=== PATIENT | female | born 1950 | race Caucasian/White ===

== ENCOUNTER → 2016-03-26 | Outpatient (CLI) | payer MEDICARE, OTHER | END | disposition home or self-care (01) | LOC: Rad HDHVI 11:30 | PROVIDERS: ATTEND Internal Medicine Cardiovascular Disease | DX: M43.16 Spondylolisthesis, lumbar region (principal); M48.06 Spinal stenosis, lumbar region; M41.86 Other forms of scoliosis, lumbar region | CPT/HCPCS: 72131 ==

== ENCOUNTER → 2016-08-16 | Outpatient (CLI) | payer MEDICARE, OTHER ==
[2016-08-16 12:45] VITALS: BP 148/82
[2016-08-16 13:20] VITALS: BP 153/77
[2016-08-16 17:11] LABS: Basophils # (auto) 0 uL; Basophils % (auto) 0.3 % (0.0-2.0); Eosinophils # (auto) 0.1 uL; Eosinophils % (auto) 1.4 % (0.0-7.0); Hematocrit 43.3 % (36.0-46.0); Hemoglobin 14.4 g/dL (12.2-16.2); Lymphocytes % (auto) 30.5 % (10.0-50.0); Mean Corpuscular Hemoglobin 30.9 pg (28.0-32.0); Mean Corpuscular Hgb Conc. 33.2 g/dL (32.0-36.0); Mean Corpuscular Volume 92.9 fL (80.0-100.0); Mean Platelet Volume 10.6 fL (7.4-10.4); Monocytes # (auto) 0.7 uL; Monocytes % (auto) 7.7 % (0.0-12.0); Neutrophils # (auto) 5.8 uL; Neutrophils % (auto) 60.1 % (37.0-80.0); Platelet Count (auto) 293 10^3/uL (140-450); Red Cell Distribution Width 14.3 % (11.6-16.0); White Blood Cell 9.7 10^3/uL (4.4-10.8)
[2016-08-16 17:27] LABS: INR 0.95 (0.9-1.15); Partial Thromboplastin Time 27.9 sec (22.64-33.71); Prothrombin Time 10.4 sec (9.37-12.3)
[2016-08-16 17:33] LABS: BUN/Creatinine Ratio 40.8; Calcium 9.1 mg/dL (8.5-10.1)
[2016-08-16 17:45] LABS: Potassium 3.9 mmol/L (3.5-5.1)
== END | disposition home or self-care (01) ==
LOC: Rad HDHVI 12:32
PROVIDERS: ATTEND Internal Medicine Cardiovascular Disease
DX: I10 Essential (primary) hypertension (principal); D64.9 Anemia, unspecified; R79.1 Abnormal coagulation profile; Z01.812 Encounter for preprocedural laboratory examination
CPT/HCPCS: 36415; 71020; 80048; 85025; 85610; 85730; 93005; G0463

== ENCOUNTER → 2016-10-26 | Outpatient (CLI) | payer MEDICARE, OTHER | END | disposition home or self-care (01) | LOC: Rad HDHVI 10:39 | PROVIDERS: ATTEND Internal Medicine Cardiovascular Disease | DX: I82.409 Acute embolism and thrombosis of unspecified deep veins of unspecified lower extremity (principal) | CPT/HCPCS: 93970 ==

== ENCOUNTER → 2017-09-08 | Outpatient (CLI) | payer MEDICARE, OTHER | END | disposition home or self-care (01) | LOC: Rad HDHVI 10:39 | PROVIDERS: ATTEND Internal Medicine Cardiovascular Disease | DX: I70.0 Atherosclerosis of aorta (principal); I11.0 Hypertensive heart disease with heart failure; I50.9 Heart failure, unspecified; E78.00 Pure hypercholesterolemia, unspecified; Z79.01 Long term (current) use of anticoagulants | CPT/HCPCS: 71046 ==

== ENCOUNTER → 2017-10-04 | Outpatient (CLI) | payer MEDICARE, OTHER ==
[2017-10-04 12:21] LABS: Basophils # (auto) 0 uL; Basophils % (auto) 0.7 % (0.0-2.0); Eosinophils # (auto) 0.2 uL; Eosinophils % (auto) 3.3 % (0.0-7.0); Hematocrit 42.9 % (36.0-46.0); Hemoglobin 14.2 g/dL (12.2-16.2); Lymphocytes % (auto) 22.3 % (10.0-50.0); Mean Corpuscular Hemoglobin 30.3 pg (28.0-32.0); Mean Corpuscular Hgb Conc. 33.1 g/dL (32.0-36.0); Mean Corpuscular Volume 91.5 fL (80.0-100.0); Monocytes # (auto) 0.5 uL; Monocytes % (auto) 11.6 % (0.0-12.0); Neutrophils # (auto) 2.9 uL; Neutrophils % (auto) 62.1 % (37.0-80.0); Nucleated Red Blood Cells % 0.5 %; Platelet Count (auto) 221 10^3/uL (140-450); Red Blood Cells 4.68 10^6/uL (4.0-5.20); Red Cell Distribution Width 15.2 % (11.8-14.3); White Blood Cell 4.6 10^3/uL (4.4-10.8)
[2017-10-04 12:38] LABS: Urine Blood Negative /uL (Negative); Urine Specific Gravity 1.027 (1.001-1.035)
[2017-10-04 12:55] LABS: Albumin 3.9 g/dL (3.4-5.0); BUN/Creatinine Ratio 27.7; Bilirubin, Total 0.3 mg/dL (0.2-1.0); Calcium 9.1 mg/dL (8.5-10.1); Potassium 3.9 mmol/L (3.5-5.1); Total Protein 7.7 g/dL (6.4-8.2)
[2017-10-04 12:59] LABS: Free T4 (Free Thyroxine) 0.91 ng/dL (0.89-1.76)
== END | disposition home or self-care (01) ==
LOC: LAB 08:10
PROVIDERS: ATTEND Internal Medicine Cardiovascular Disease
DX: Z00.01 Encounter for general adult medical examination with abnormal findings (principal); E11.9 Type 2 diabetes mellitus without complications; E03.9 Hypothyroidism, unspecified; E55.9 Vitamin D deficiency, unspecified; D51.9 Vitamin B12 deficiency anemia, unspecified; N39.0 Urinary tract infection, site not specified; I11.0 Hypertensive heart disease with heart failure; I50.9 Heart failure, unspecified
CPT/HCPCS: 36415; 80053; 80061; 81003; 82306; 82607; 82962; 83036; 84439; 84443; 85025; 87086

== ENCOUNTER → 2018-03-21 | Outpatient (CLI) | payer MEDICARE, OTHER ==
[2018-03-21 11:33] LABS: Basophils # (auto) 0 uL; Basophils % (auto) 0.4 % (0.0-2.0); Eosinophils # (auto) 0.1 uL; Eosinophils % (auto) 1.8 % (0.0-7.0); Hematocrit 42.5 % (36.0-46.0); Lymphocytes # (auto) 1.3 uL; Lymphocytes % (auto) 24.4 % (10.0-50.0); Mean Corpuscular Hemoglobin 31.3 pg (28.0-32.0); Mean Corpuscular Hgb Conc. 33.1 g/dL (32.0-36.0); Mean Corpuscular Volume 94.6 fL (80.0-100.0); Monocytes # (auto) 0.4 uL; Monocytes % (auto) 7.9 % (0.0-12.0); Neutrophils # (auto) 3.5 uL; Neutrophils % (auto) 65.5 % (37.0-80.0); Nucleated Red Blood Cells % 0.2 %; Platelet Count (auto) 218 10^3/uL (140-450); Red Blood Cells 4.49 10^6/uL (4.0-5.20); Red Cell Distribution Width 13.5 % (11.8-14.3); White Blood Cell 5.3 10^3/uL (4.4-10.8)
[2018-03-21 11:37] LABS: Urine Blood Negative /uL (Negative); Urine Specific Gravity 1.011 (1.001-1.035)
[2018-03-21 11:55] LABS: Chloride 105 mmol/L (98-107); Sodium 138 mmol/L (136-145)
[2018-03-21 11:58] LABS: Free T4 (Free Thyroxine) 1.05 ng/dL (0.89-1.76)
[2018-03-21 12:06] LABS: Alanine Aminotransferase 44 U/L (13-56); Albumin 3.6 g/dL (3.4-5.0); Alkaline Phosphatase 67 U/L (45-117); Anion Gap 8 (5-15); Aspartate Aminotransferase 25 U/L (15-37); BUN/Creatinine Ratio 26.9; Bilirubin, Total 0.3 mg/dL (0.2-1.0); Blood Urea Nitrogen 21 mg/dL (7-18); Calcium 8.8 mg/dL (8.5-10.1); Carbon Dioxide 25 mmol/L (21-32); Cholesterol 132 mg/dL (< 200); GFR African American > 60 mL/min; GFR Non-African American > 60 mL/min; Glucose 91 mg/dL (74-106); HDL Cholesterol 44 mg/dL (40-59); LDL Cholesterol 70 mg/dL (< 100); Total Protein 7.1 g/dL (6.4-8.2); Triglycerides 164 mg/dL (< 150)
== END | disposition home or self-care (01) ==
LOC: Rad HDHVI 08:52
PROVIDERS: ATTEND Internal Medicine Cardiovascular Disease
DX: I65.29 Occlusion and stenosis of unspecified carotid artery (principal); I10 Essential (primary) hypertension; E03.9 Hypothyroidism, unspecified; E11.9 Type 2 diabetes mellitus without complications; E55.9 Vitamin D deficiency, unspecified; D51.9 Vitamin B12 deficiency anemia, unspecified; N39.0 Urinary tract infection, site not specified
CPT/HCPCS: 36415; 80053; 80061; 81003; 82306; 82607; 82962; 83036; 84439; 84443; 85025; 87086; 87088; 87186; 93880

== ENCOUNTER → 2018-05-31 | Outpatient (CLI) | payer MEDICARE, OTHER | END | disposition home or self-care (01) | LOC: Rad HDHVI 08:36 | PROVIDERS: ATTEND Internal Medicine Cardiovascular Disease | DX: I10 Essential (primary) hypertension (principal); R07.89 Other chest pain; R06.01 Orthopnea; E11.9 Type 2 diabetes mellitus without complications | CPT/HCPCS: 93306; 93880 ==

== ENCOUNTER → 2018-07-04 | Outpatient (CLI) | payer MEDICARE, OTHER ==
[~2018-07-04] VITALS: Ht 167.6 cm; Wt 90.3 kg
[~2018-07-04] MED LIST: ADENOSINE 76 MG in GIVE UN-DILUTED 0 ML IV ONE; ADENOSINE 90 MG/30 ML INJ IV ONE
== END | disposition home or self-care (01) ==
LOC: Rad HDHVI 08:25
PROVIDERS: ATTEND Internal Medicine Cardiovascular Disease
DX: C50.919 Malignant neoplasm of unspecified site of unspecified female breast (principal); I10 Essential (primary) hypertension; E78.5 Hyperlipidemia, unspecified; Z92.3 Personal history of irradiation
CPT/HCPCS: 78452; 93005; 96374; 96375; A9500; J0153

== ENCOUNTER → 2018-10-09 | Outpatient (CLI) | payer MEDICARE, OTHER ==
[2018-10-09 13:18] LABS: Free T4 (Free Thyroxine) 0.94 ng/dL (0.89-1.76)
== END | disposition home or self-care (01) ==
LOC: LAB 09:10
PROVIDERS: ATTEND Internal Medicine Cardiovascular Disease
DX: D51.9 Vitamin B12 deficiency anemia, unspecified (principal); K90.9 Intestinal malabsorption, unspecified; E03.9 Hypothyroidism, unspecified
CPT/HCPCS: 82306; 82607; 84439

== ENCOUNTER → 2018-10-11 | Outpatient (CLI) | payer MEDICARE, OTHER ==
[2018-10-11 12:06] LABS: Basophils # (auto) 0 uL; Basophils % (auto) 0.6 % (0.0-2.0); Eosinophils # (auto) 0.1 uL; Eosinophils % (auto) 1.6 % (0.0-7.0); Hematocrit 41.9 % (36.0-46.0); Lymphocytes # (auto) 1.4 uL; Mean Corpuscular Hemoglobin 30.8 pg (28.0-32.0); Mean Corpuscular Hgb Conc. 33.4 g/dL (32.0-36.0); Monocytes # (auto) 0.6 uL; Monocytes % (auto) 7.8 % (0.0-12.0); Neutrophils # (auto) 5.3 uL; Nucleated Red Blood Cells % 0.1 %; Platelet Count (auto) 212 10^3/uL (140-450); Red Blood Cells 4.55 10^6/uL (4.0-5.20); Red Cell Distribution Width 14.6 % (11.8-14.3); White Blood Cell 7.5 10^3/uL (4.4-10.8)
[2018-10-11 12:10] LABS: Albumin 3.5 g/dL (3.4-5.0); BUN/Creatinine Ratio 36.5; Calcium 9.4 mg/dL (8.5-10.1); Potassium 4.5 mmol/L (3.5-5.1)
[2018-10-11 12:13] LABS: Bilirubin, Total 0.2 mg/dL (0.2-1.0); Total Protein 7.2 g/dL (6.4-8.2)
== END | disposition home or self-care (01) ==
LOC: LAB 08:11
PROVIDERS: ATTEND Internal Medicine Cardiovascular Disease
DX: E11.42 Type 2 diabetes mellitus with diabetic polyneuropathy (principal)
CPT/HCPCS: 36415; 80053; 80061; 83036; 84443; 85025

== ENCOUNTER → 2018-10-12 | Outpatient (CLI) | payer MEDICARE, OTHER ==
[2018-10-12 12:37] LABS: Urine Blood Negative /uL (Negative); Urine Specific Gravity 1.012 (1.001-1.035)
== END | disposition home or self-care (01) ==
LOC: LAB 09:45
PROVIDERS: ATTEND Internal Medicine Cardiovascular Disease
DX: N39.0 Urinary tract infection, site not specified (principal)
CPT/HCPCS: 81003

== ENCOUNTER → 2019-04-30 | Outpatient (CLI) | payer MEDICARE, OTHER | END | disposition home or self-care (01) | LOC: Rad HDHVI 10:38 | PROVIDERS: ATTEND Internal Medicine Cardiovascular Disease | DX: M48.061 Spinal stenosis, lumbar region without neurogenic claudication (principal); M12.88 Other specific arthropathies, not elsewhere classified, other specified site; M41.86 Other forms of scoliosis, lumbar region; M25.78 Osteophyte, vertebrae | CPT/HCPCS: 72131 ==

== ENCOUNTER → 2019-06-15 | Outpatient (CLI) | payer MEDICARE, OTHER ==
[~2019-06-15] MED LIST changes: -ADENOSINE 76 MG in GIVE UN-DILUTED 0 ML IV ONE; -ADENOSINE 90 MG/30 ML INJ IV ONE; +IOHEXOL 350 MG/ML 100ML IJ ONE
--- NOTE | 2019-06-15 08:50 | NUR ---
PT. TO CLINIC FOR CT OF LUE WITH IV CONTRAST PER MD ORDER. PT. HX REVIEWED. ORDERS RECEIVED AND CARRIED OUT.
[2019-06-15 09:05] VITALS: BP 186/92
--- NOTE | 2019-06-15 09:10 | NUR ---
IV insertion IV access obtained, via clean sterile technique by inserting 20 gauge catheter at after attempt(s). IV secured properly. No trauma to site. Patient tolerated procedure well.STAT CREAT. LEVEL SENT. WITH ADDITIONAL LABS ORDERD PER MD PT. WITH POOR VASCULAR ACCESS DUE TO PREVIOUS CHEMO. THERAPY AND NECESSITY TO USE RUE FOR IV ACCESS ONLY.
--- NOTE | 2019-06-15 09:59 | NUR ---
REPEAT VS: 169/67, 66, 18. PT. RESTING WITH NO C/O.
--- NOTE | 2019-06-15 10:50 | NUR ---
PT RETURNED BACK FROM CT. PT STABLE, NO S/S OF DISTRESS/SOB NOTED. PT TOLERATED WELL. VSS WILL D/C PATIENT.
--- NOTE | 2019-06-15 10:57 | NUR ---
IV removal IV DC'd with sterile technique, catheter fully intact. Pressure dressing applied to site. Patient tolerated procedure well.
[2019-06-15 11:05] VITALS: BP 164/80
--- NOTE | 2019-06-15 11:05 | NUR ---
CHF Discharge Instructions See e-MAR for any mediations given with this visit. Patient education given on disease process. Patient verbalized understanding. Patient discharged in stable condition with after care instructions and follow up appointment. NOTES PT EDUCATED TO INCREASE ORAL HYDRATION OVER THE NEXT 24 HOURS. PT VERBALIZED UNDERSTANDING.
[2019-06-15 11:36] LABS: Basophils # (auto) 0.1 10 ^3/uL (0-0.2); Eosinophils # (auto) 0.1 10 ^3/uL (0-0.8); Hematocrit 39.8 % (36.0-46.0); Hemoglobin 13.7 g/dL (12.2-16.2); Lymphocytes # (auto) 1.3 10 ^3/uL (0.4-5.4); Lymphocytes % (auto) 23.5 % (10.0-50.0); Mean Corpuscular Hemoglobin 31.6 pg (28.0-32.0); Mean Corpuscular Hgb Conc. 34.4 g/dL (32.0-36.0); Mean Corpuscular Volume 91.8 fL (80.0-100.0); Monocytes # (auto) 0.4 10 ^3/uL (0-1.3); Monocytes % (auto) 7.9 % (0.0-12.0); Neutrophils # (auto) 3.7 10 ^3/uL (1.6-8.6); Neutrophils % (auto) 65.6 % (37.0-80.0); Platelet Count (auto) 227 10^3/uL (140-450); Red Blood Cells 4.34 10^6/uL (4.0-5.20); Red Cell Distribution Width 15.5 % (11.8-14.3); White Blood Cell 5.7 10^3/uL (4.4-10.8)
[2019-06-15 11:53] LABS: Albumin 3.7 g/dL (3.4-5.0); Magnesium 2.6 mg/dL (1.6-2.6); Potassium 4.2 mmol/L (3.5-5.1)
[2019-06-15 11:59] LABS: BUN/Creatinine Ratio 25.8; Bilirubin, Total 0.2 mg/dL (0.2-1.0); Total Protein 7.3 g/dL (6.4-8.2)
== END | disposition home or self-care (01) ==
LOC: Rad HDHVI 08:39
PROVIDERS: ATTEND Internal Medicine Cardiovascular Disease
DX: K57.30 Diverticulosis of large intestine without perforation or abscess without bleeding (principal); I70.0 Atherosclerosis of aorta; E11.9 Type 2 diabetes mellitus without complications; R94.4 Abnormal results of kidney function studies; R00.2 Palpitations; Z79.899 Other long term (current) drug therapy
CPT/HCPCS: 36415; 71260; 74177; 80053; 82565; 83036; 83735; 85025; G0463; Q9967

== ENCOUNTER → 2019-06-18 | Outpatient (CLI) | payer MEDICARE, OTHER | END | disposition home or self-care (01) | LOC: Rad HDHVI 09:46 | PROVIDERS: ATTEND Internal Medicine Cardiovascular Disease | DX: M79.622 Pain in left upper arm (principal) | CPT/HCPCS: 93931; 93971 ==

== ENCOUNTER → 2019-08-22 | Outpatient (CLI) | payer MEDICARE, OTHER | END | disposition home or self-care (01) | LOC: Rad HDHVI 15:40 | PROVIDERS: ATTEND Internal Medicine Cardiovascular Disease | DX: I70.0 Atherosclerosis of aorta (principal); R05 Cough | CPT/HCPCS: 71046 ==

== ENCOUNTER → 2019-09-14 | Outpatient (CLI) | payer MEDICARE, OTHER | END | disposition home or self-care (01) | LOC: LAB 09:24 | PROVIDERS: ATTEND Internal Medicine Cardiovascular Disease | DX: R94.4 Abnormal results of kidney function studies (principal) | CPT/HCPCS: 36415; 82565 ==

== ENCOUNTER → 2019-09-17 | Outpatient (CLI) | payer MEDICARE, OTHER ==
[2019-09-17 08:40] VITALS: BP 183/86
[2019-09-17 09:25] VITALS: BP 176/85
== END | disposition home or self-care (01) ==
LOC: Rad HDHVI 08:34
PROVIDERS: ATTEND Internal Medicine Cardiovascular Disease
DX: I70.0 Atherosclerosis of aorta (principal); I25.10 Atherosclerotic heart disease of native coronary artery without angina pectoris; J84.10 Pulmonary fibrosis, unspecified; R06.02 Shortness of breath; M51.24 Other intervertebral disc displacement, thoracic region; J98.4 Other disorders of lung; M47.814 Spondylosis without myelopathy or radiculopathy, thoracic region
CPT/HCPCS: 71260; G0463; Q9967

== ENCOUNTER → 2019-11-26 | Outpatient (CLI) | payer MEDICARE, OTHER ==
[2019-11-26 12:09] LABS: Basophils # (auto) 0 10 ^3/uL (0-0.2); Basophils % (auto) 0.5 % (0.0-2.0); Eosinophils # (auto) 0 10 ^3/uL (0-0.8); Eosinophils % (auto) 0.6 % (0.0-7.0); Hematocrit 41.8 % (36.0-46.0); Hemoglobin 13.8 g/dL (12.2-16.2); Lymphocytes # (auto) 1.7 10 ^3/uL (0.4-5.4); Lymphocytes % (auto) 22.7 % (10.0-50.0); Mean Corpuscular Hemoglobin 30.3 pg (28.0-32.0); Mean Corpuscular Hgb Conc. 33.1 g/dL (32.0-36.0); Mean Corpuscular Volume 91.7 fL (80.0-100.0); Monocytes # (auto) 0.6 10 ^3/uL (0-1.3); Monocytes % (auto) 8.1 % (0.0-12.0); Neutrophils # (auto) 5.2 10 ^3/uL (1.6-8.6); Neutrophils % (auto) 68.1 % (37.0-80.0); Nucleated Red Blood Cells % 0.1 %; Platelet Count (auto) 271 10^3/uL (140-450); Red Blood Cells 4.55 10^6/uL (4.0-5.20); Red Cell Distribution Width 14.4 % (11.8-14.3); White Blood Cell 7.7 10^3/uL (4.4-10.8)
[2019-11-26 12:16] LABS: Potassium 4.2 mmol/L (3.5-5.1)
[2019-11-26 12:19] LABS: Urine Blood Negative /uL (Negative); Urine Specific Gravity 1.033 (1.001-1.035)
[2019-11-26 12:28] LABS: Albumin 3.9 g/dL (3.4-5.0); BUN/Creatinine Ratio 34.6; Bilirubin, Total 0.3 mg/dL (0.2-1.0); Calcium 9.4 mg/dL (8.5-10.1); Total Protein 7.4 g/dL (6.4-8.2)
[2019-11-26 15:43] LABS: Free T4 (Free Thyroxine) 0.92 ng/dL (0.89-1.76)
== END | disposition home or self-care (01) ==
LOC: LAB 08:27
PROVIDERS: ATTEND Internal Medicine Cardiovascular Disease
DX: D51.3 Other dietary vitamin B12 deficiency anemia (principal); D64.9 Anemia, unspecified; E11.9 Type 2 diabetes mellitus without complications; E55.9 Vitamin D deficiency, unspecified; I10 Essential (primary) hypertension; R00.2 Palpitations; R53.1 Weakness; R30.0 Dysuria
CPT/HCPCS: 36415; 80053; 80061; 81003; 82306; 82607; 83036; 84439; 84443; 85025; 87086

== ENCOUNTER → 2019-11-28 | Outpatient (CLI) | payer MEDICARE, OTHER | END | disposition home or self-care (01) | LOC: Rad HDHVI 10:59 | PROVIDERS: ATTEND Internal Medicine Cardiovascular Disease | DX: I48.91 Unspecified atrial fibrillation (principal); R00.2 Palpitations; R06.02 Shortness of breath | CPT/HCPCS: 93306 ==

== ENCOUNTER → 2020-03-28 | Outpatient (CLI) | payer MEDICARE, OTHER | END | disposition home or self-care (01) | LOC: Rad HDHVI 08:49 | PROVIDERS: ATTEND Internal Medicine Cardiovascular Disease | DX: M47.816 Spondylosis without myelopathy or radiculopathy, lumbar region (principal); M48.061 Spinal stenosis, lumbar region without neurogenic claudication; M25.452 Effusion, left hip; M54.5 Low back pain; M16.12 Unilateral primary osteoarthritis, left hip; K57.30 Diverticulosis of large intestine without perforation or abscess without bleeding; I70.8 Atherosclerosis of other arteries | CPT/HCPCS: 72131; 73700 ==

== ENCOUNTER → 2020-12-22 | Outpatient (CLI) | payer MEDICARE, OTHER ==
[~2020-12-22] MED LIST changes: -IOHEXOL 350 MG/ML 100ML IJ ONE; +KETOROLAC TROMETH 60MG/2ML VIAL IM ONE; +KETOROLAC TROMETH 60MG/2ML VIAL ONE
[2020-12-22 15:16] VITALS: BP 126/59
[2020-12-22 15:32] VITALS: BP 133/68
== END | disposition home or self-care (01) ==
LOC: Rad HDHVI 14:19
PROVIDERS: ATTEND Internal Medicine Cardiovascular Disease
DX: M25.559 Pain in unspecified hip (principal); M79.606 Pain in leg, unspecified; G89.29 Other chronic pain; R00.2 Palpitations; I10 Essential (primary) hypertension; E78.5 Hyperlipidemia, unspecified; E11.9 Type 2 diabetes mellitus without complications; I48.91 Unspecified atrial fibrillation
CPT/HCPCS: 93306; 96372; G0463; J1885

== ENCOUNTER → 2021-05-14 | Outpatient (CLI) | payer MEDICARE, OTHER ==
[~2021-05-14] MED LIST changes: +ACE650RS PR; +ASCO500T11 PO; +ATOR20TA PO; +CARI-277 PO; +CHOL100083 PO; +DICL50TA4 PO; +DICL75TA3 PO; +FAMO-68 PO; +GABA300C10 PO; -KETOROLAC TROMETH 60MG/2ML VIAL IM ONE; -KETOROLAC TROMETH 60MG/2ML VIAL ONE; +LANS30CA57 PO; +LETR2.5T PO; +MAGN400T40 PO; +NIFE1TAB30 PO; +TOLT2CAP PO; +ZINC50TA7 PO
== END | disposition home or self-care (01) ==
LOC: Rad HDHVI 13:32
PROVIDERS: ATTEND Internal Medicine Cardiovascular Disease
DX: M16.12 Unilateral primary osteoarthritis, left hip (principal); M76.9 Unspecified enthesopathy, lower limb, excluding foot; M85.88 Other specified disorders of bone density and structure, other site; K57.30 Diverticulosis of large intestine without perforation or abscess without bleeding; M17.12 Unilateral primary osteoarthritis, left knee
CPT/HCPCS: 73700

== ENCOUNTER → 2021-08-05 | Outpatient (CLI) | payer MEDICARE, OTHER | END | disposition home or self-care (01) | LOC: Rad HDHVI 12:27 | PROVIDERS: ATTEND Internal Medicine Cardiovascular Disease | DX: R05.9 Cough, unspecified (principal) | CPT/HCPCS: 71046 ==

== ENCOUNTER → 2021-09-25 | Outpatient (CLI) | payer MEDICARE, OTHER ==
[~2021-09-25] MED LIST changes: +IOHEXOL 350 MG/ML 100ML IJ ONE
[2021-09-25 12:25] VITALS: BP 125/66
[2021-09-25 14:43] VITALS: BP 133/63
== END | disposition home or self-care (01) ==
LOC: Rad HDHVI 12:05
PROVIDERS: ATTEND Internal Medicine Cardiovascular Disease
DX: M85.80 Other specified disorders of bone density and structure, unspecified site (principal); I70.90 Unspecified atherosclerosis; R94.4 Abnormal results of kidney function studies; R42 Dizziness and giddiness
CPT/HCPCS: 36415; 70470; 73700; 82565; 82947; 84520; G0463; Q9967

== ENCOUNTER 2021-10-02 14:15 | Inpatient (IN) | payer MEDICARE, OTHER ==
[~2021-10-02] VITALS: Ht 167.6 cm; Wt 93.7 kg
[~2021-10-02 14:15] MED LIST changes: -IOHEXOL 350 MG/ML 100ML IJ ONE
[2021-10-02] MEDS ORDERED: DICLTAB53 OR (16:53)
[2021-10-02] MEDS ORDERED: MULT1CAP30 PO (16:53)
[2021-10-02] MEDS ORDERED: SUMA50TA2 PO (16:53)
[2021-10-02 17:40] VITALS: BP 125/72
[2021-10-02] MEDS ORDERED: cefTRIAXone 1GM/50ML D5W 50 ML IV SCH (18:01)
[2021-10-02] MEDS ORDERED: VANCOMYCIN 1GM/250ML 250 ML IV SCH (18:04)
[2021-10-02 18:45] LABS: Basophils # (auto) 0.1 10 ^3/uL (0-0.2); Basophils % (auto) 1.1 % (0.0-2.0); Eosinophils # (auto) 0.2 10 ^3/uL (0-0.8); Eosinophils % (auto) 2.7 % (0.0-7.0); Hematocrit 41.7 % (36.0-46.0); Hemoglobin 13.3 g/dL (12.2-16.2); Lymphocytes # (auto) 1.6 10 ^3/uL (0.4-5.4); Lymphocytes % (auto) 21.9 % (10.0-50.0); Mean Corpuscular Hemoglobin 27.7 pg (28.0-32.0); Mean Corpuscular Hgb Conc. 31.8 g/dL (32.0-36.0); Mean Corpuscular Volume 87.4 fL (80.0-100.0); Monocytes # (auto) 0.6 10 ^3/uL (0-1.3); Monocytes % (auto) 8.4 % (0.0-12.0); Neutrophils # (auto) 4.9 10 ^3/uL (1.6-8.6); Neutrophils % (auto) 65.9 % (37.0-80.0); Red Blood Cells 4.78 10^6/uL (4.0-5.20); Red Cell Distribution Width 16.3 % (11.8-14.3); White Blood Cell 7.5 10^3/uL (4.4-10.8)
[2021-10-02 18:55] LABS: BUN/Creatinine Ratio 28.4
[2021-10-02 18:56] LABS: Albumin 3.6 g/dL (3.4-5.0)
[2021-10-02 19:00] LABS: Alanine Aminotransferase 41 U/L (13-56); Alkaline Phosphatase 97 U/L (45-117); Aspartate Aminotransferase 20 U/L (15-37); Bilirubin, Direct < 0.1 mg/dL (0-0.2); Bilirubin, Total 0.2 mg/dL (0.2-1.0); Cholesterol 125 mg/dL (< 200); HDL Cholesterol 47 mg/dL (40-59); LDL Cholesterol 67 mg/dL (< 100); Total Protein 6.7 g/dL (6.4-8.2); Triglycerides 220 mg/dL (< 150)
[2021-10-02 20:00] VITALS: BP 159/82
[2021-10-02] MEDS: TOLTERODINE 4 MG PO SCH (21:37)
[2021-10-02] MEDS: LETROZOLE 2.5 MG PO SCH (21:37)
[2021-10-02 21:47] VITALS: BP 159/82
[2021-10-03] VITALS (7 sets, daily range): BP systolic 134–163; BP diastolic 67–87
[2021-10-03] MEDS: LETROZOLE 2.5 MG PO SCH (05:32)
[2021-10-03] MEDS: NIFEdipine ER 30 MG TAB PO SCH (05:53)
[2021-10-03 09:43] LABS: INR 1.03 (0.9-1.15); Partial Thromboplastin Time 28.5 sec (24.6-33.4)
[2021-10-03] MEDS: cefTRIAXone 1GM/50ML D5W 50 ML IV SCH (09:44)
[2021-10-03] MEDS: FAMOTIDINE 20 MG TAB PO SCH ×2 (09:45→21:20)
[2021-10-03] MEDS ORDERED: VANCOMYCIN 1GM/250ML 250 ML IV SCH (10:00)
[2021-10-03] MEDS: TOLTERODINE 4 MG PO SCH ×2 (11:25→21:20)
[2021-10-04] VITALS (7 sets, daily range): BP systolic 136–153; BP diastolic 68–76
[2021-10-04] MEDS: NIFEdipine ER 30 MG TAB PO SCH (05:33)
[2021-10-04] MEDS: LETROZOLE 2.5 MG PO SCH ×2 (05:34→11:26)
[2021-10-04 08:45] LABS: Albumin 3.6 g/dL (3.4-5.0); Potassium 4.7 mmol/L (3.5-5.1)
[2021-10-04 08:47] LABS: BUN/Creatinine Ratio 35.3; Calcium 9.3 mg/dL (8.5-10.1)
[2021-10-04] MEDS ORDERED: TOLTERODINE 4 MG PO SCH ×2 (10:00)
[2021-10-04] MEDS ORDERED: ACETAMINOPHEN 325 MG TAB PO PRN (10:15)
[2021-10-04] MEDS: cefTRIAXone 1GM/50ML D5W 50 ML IV SCH (11:23)
[2021-10-04] MEDS: VANCOMYCIN 1GM/250ML 250 ML IV SCH ×3 (11:24→22:00)
[2021-10-04] MEDS: FAMOTIDINE 20 MG TAB PO SCH ×2 (11:25→22:00)
[2021-10-04 11:35] LABS: Basophils # (auto) 0 10 ^3/uL (0-0.2); Basophils % (auto) 0.7 % (0.0-2.0); Eosinophils # (auto) 0.2 10 ^3/uL (0-0.8); Eosinophils % (auto) 2.9 % (0.0-7.0); Hematocrit 42.5 % (36.0-46.0); Hemoglobin 13.6 g/dL (12.2-16.2); Lymphocytes # (auto) 1.9 10 ^3/uL (0.4-5.4); Lymphocytes % (auto) 25.9 % (10.0-50.0); Mean Corpuscular Hemoglobin 27.8 pg (28.0-32.0); Mean Corpuscular Hgb Conc. 31.9 g/dL (32.0-36.0); Mean Corpuscular Volume 87.3 fL (80.0-100.0); Monocytes # (auto) 0.6 10 ^3/uL (0-1.3); Monocytes % (auto) 8.1 % (0.0-12.0); Neutrophils # (auto) 4.5 10 ^3/uL (1.6-8.6); Neutrophils % (auto) 62.4 % (37.0-80.0); Nucleated Red Blood Cells % 0.1 %; Red Blood Cells 4.87 10^6/uL (4.0-5.20); Red Cell Distribution Width 16.1 % (11.8-14.3); White Blood Cell 7.2 10^3/uL (4.4-10.8)
[2021-10-04 11:51] LABS: Albumin 3.7 g/dL (3.4-5.0); BUN/Creatinine Ratio 31.1; Calcium 9.2 mg/dL (8.5-10.1); Potassium 4.8 mmol/L (3.5-5.1)
[2021-10-04 11:54] LABS: Bilirubin, Total 0.4 mg/dL (0.2-1.0); Total Protein 6.8 g/dL (6.4-8.2)
[2021-10-04] MEDS: ACETAMINOPHEN 325 MG TAB PO PRN (22:33)
[2021-10-05 05:00] VITALS: BP 124/81
[2021-10-05] MEDS: LETROZOLE 2.5 MG PO SCH (05:38)
[2021-10-05] MEDS: VANCOMYCIN 1GM/250ML 250 ML IV SCH ×2 (06:00→23:56)
[2021-10-05] MEDS: NIFEdipine ER 30 MG TAB PO SCH (06:13)
[2021-10-05 08:00] VITALS: BP 143/67
[2021-10-05 09:00] VITALS: BP 143/67
[2021-10-05] MEDS: cefTRIAXone 1GM/50ML D5W 50 ML IV SCH (09:00)
[2021-10-05] MEDS ORDERED: LIDOCAINE 2%HCL (LOCAL ANESTH.) INJ 10ml MDV ONE (09:54)
[2021-10-05] MEDS ORDERED: methylPREDNISolone ACETATE 80 MG/ML VL ONE (09:54)
[2021-10-05] MEDS ORDERED: BUPIVACAINE HCL 0.25% P/F 10 ML VIAL ONE (09:54)
[2021-10-05] MEDS: TOLTERODINE 4 MG PO SCH (10:00)
[2021-10-05] MEDS: FAMOTIDINE 20 MG TAB PO SCH ×2 (10:00→22:22)
[2021-10-05 12:46] VITALS: BP 135/73
[2021-10-05] MEDS: ACETAMINOPHEN 325 MG TAB PO PRN ×2 (16:28→22:23)
[2021-10-05 17:00] VITALS: BP 145/73
[2021-10-05 22:00] VITALS: BP 147/73
[2021-10-05] MEDS ORDERED: VANCOMYCIN 1GM/250ML 250 ML IV SCH ×2 (22:00→22:15)
[2021-10-06 05:00] VITALS: BP 127/57
[2021-10-06] MEDS: NIFEdipine ER 30 MG TAB PO SCH (05:44)
[2021-10-06] MEDS: LETROZOLE 2.5 MG PO SCH (05:46)
[2021-10-06 06:12] LABS: Basophils # (auto) 0.1 10 ^3/uL (0-0.2); Basophils % (auto) 0.9 % (0.0-2.0); Eosinophils # (auto) 0.2 10 ^3/uL (0-0.8); Eosinophils % (auto) 3.1 % (0.0-7.0); Hematocrit 36.1 % (36.0-46.0); Hemoglobin 12.4 g/dL (12.2-16.2); Lymphocytes # (auto) 1.3 10 ^3/uL (0.4-5.4); Mean Corpuscular Hemoglobin 29.2 pg (28.0-32.0); Mean Corpuscular Hgb Conc. 34.4 g/dL (32.0-36.0); Mean Corpuscular Volume 85.1 fL (80.0-100.0); Monocytes # (auto) 0.7 10 ^3/uL (0-1.3); Monocytes % (auto) 10.8 % (0.0-12.0); Neutrophils # (auto) 3.9 10 ^3/uL (1.6-8.6); Neutrophils % (auto) 64.2 % (37.0-80.0); Nucleated Red Blood Cells % 0.1 %; Red Blood Cells 4.24 10^6/uL (4.0-5.20); Red Cell Distribution Width 15.5 % (11.8-14.3)
[2021-10-06 06:28] LABS: BUN/Creatinine Ratio 30.4; Calcium 8.7 mg/dL (8.5-10.1); Potassium 3.5 mmol/L (3.5-5.1)
[2021-10-06] MEDS: cefTRIAXone 1GM/50ML D5W 50 ML IV SCH (08:14)
[2021-10-06] MEDS: ACETAMINOPHEN 325 MG TAB PO PRN ×3 (08:14→22:04)
[2021-10-06] MEDS: FAMOTIDINE 20 MG TAB PO SCH ×2 (08:14→22:03)
[2021-10-06] MEDS: TOLTERODINE 4 MG PO SCH (08:15)
[2021-10-06 09:27] VITALS: BP 122/60
[2021-10-06 13:37] VITALS: BP 140/95
[2021-10-06] MEDS ORDERED: LIDOCAINE 1% (LOCAL ANESTH.) PF 5ml SDV ID ONE (15:45)
[2021-10-06] MEDS: VANCOMYCIN 1GM/250ML 250 ML IV SCH (16:05)
[2021-10-06 16:33] VITALS: BP 137/73
[2021-10-06 22:00] VITALS: BP 146/89
[2021-10-06] MEDS: SODIUM CHLOR 0.9% PF (SALINE LOCK) 10ML VIAL/SYR IV SCH (22:03)
[2021-10-07] MEDS: ACETAMINOPHEN 325 MG TAB PO PRN ×3 (04:27→21:23)
[2021-10-07 05:00] VITALS: BP 137/64
[2021-10-07] MEDS: LETROZOLE 2.5 MG PO SCH (05:45)
[2021-10-07] MEDS: NIFEdipine ER 30 MG TAB PO SCH (05:46)
[2021-10-07 06:52] LABS: Calcium 8.7 mg/dL (8.5-10.1)
[2021-10-07] MEDS: FAMOTIDINE 20 MG TAB PO SCH ×2 (08:44→21:12)
[2021-10-07] MEDS: TOLTERODINE 4 MG PO SCH (08:44)
[2021-10-07] MEDS: cefTRIAXone 1GM/50ML D5W 50 ML IV SCH (08:45)
[2021-10-07] MEDS: SODIUM CHLOR 0.9% PF (SALINE LOCK) 10ML VIAL/SYR IV SCH ×2 (08:45→21:12)
[2021-10-07] MEDS: VANCOMYCIN 1GM/250ML 250 ML IV SCH (08:46)
[2021-10-07 09:00] VITALS: BP 136/80
[2021-10-07 13:00] VITALS: BP 145/78
[2021-10-07 16:42] VITALS: BP 137/80
[2021-10-07 22:00] VITALS: BP 153/86
[2021-10-08] MEDS: VANCOMYCIN 1GM/250ML 250 ML IV SCH (03:55)
[2021-10-08 05:00] VITALS: BP 142/65
[2021-10-08] MEDS: LETROZOLE 2.5 MG PO SCH (05:54)
[2021-10-08] MEDS: NIFEdipine ER 30 MG TAB PO SCH (05:55)
[2021-10-08] MEDS: ACETAMINOPHEN 325 MG TAB PO PRN (05:55)
[2021-10-08 09:00] VITALS: BP 150/81
[2021-10-08] MEDS: cefTRIAXone 1GM/50ML D5W 50 ML IV SCH (09:38)
[2021-10-08] MEDS: FAMOTIDINE 20 MG TAB PO SCH (09:38)
[2021-10-08] MEDS: TOLTERODINE 4 MG PO SCH (09:40)
[2021-10-08] MEDS: SODIUM CHLOR 0.9% PF (SALINE LOCK) 10ML VIAL/SYR IV SCH (09:41)
[2021-10-08 13:00] VITALS: BP 129/71
[2021-10-08 13:17] VITALS: BP 142/65
== END 2021-10-08 15:25 | disposition home health service (06) | DRG 561 ==
LOC: WEST WING 15:49 → UNDODISIN 10-04 18:00
PROVIDERS: ADMIT Internal Medicine Cardiovascular Disease; ATTEND Internal Medicine Cardiovascular Disease
PROC: 0S9B3ZX Drainage of Left Hip Joint, Percutaneous Approach, Diagnostic (ICD-10-PCS; principal; 2021-10-05)
DX: T84.52XA Infection and inflammatory reaction due to internal left hip prosthesis, initial encounter (principal); M19.90 Unspecified osteoarthritis, unspecified site; Z96.643 Presence of artificial hip joint, bilateral; I10 Essential (primary) hypertension; Z20.822 Contact with and (suspected) exposure to COVID-19; K21.00 Gastro-esophageal reflux disease with esophagitis, without bleeding; Y83.8 Other surgical procedures as the cause of abnormal reaction of the patient, or of later complication, without mention of misadventure at the time of the procedure; Z79.811 Long term (current) use of aromatase inhibitors; Z85.3 Personal history of malignant neoplasm of breast; Z90.10 Acquired absence of unspecified breast and nipple; Z88.8 Allergy status to other drugs, medicaments and biological substances; Y92.89 Other specified places as the place of occurrence of the external cause
CPT/HCPCS: 36415; 36569; 71045; 73502; 76942; 78315; 80048; 80053; 80061; 80069; 80076; 80202; 85025; 85610; 85652; 85730; 86141; 86850; 86900; 86901; 87205; 93926; 96365; 96367; 97163; G0378; G0463; J0696; J2001; J3490

== ENCOUNTER 2021-11-25 16:17 | Inpatient (IN) | payer MEDICARE, OTHER ==
[~2021-11-25] VITALS: Ht 167.6 cm; Wt 94.0 kg
[~2021-11-25 16:17] MED LIST changes: +ACE650RS PO; -ACE650RS PR; +DICLTAB53 OR; +MULT1CAP30 PO; +SUMA50TA2 PO
[2021-11-25 17:35] VITALS: BP 158/87
[2021-11-25] MEDS ORDERED: CARISOPRODOL 350 MG TAB PO PRN (18:30)
[2021-11-25] MEDS ORDERED: CYCL-839 PO (18:40)
[2021-11-25] MEDS ORDERED: POTA-220 PO (18:40)
[2021-11-25] MEDS ORDERED: FURO20TA3 PO (18:40)
[2021-11-25 20:00] VITALS: BP 152/81
[2021-11-25 22:00] VITALS: BP 152/81
[2021-11-25] MEDS: MULTIPLE VITAMINS W/ MINERALS TAB PO SCH (22:00)
[2021-11-25] MEDS ORDERED: SUMAtriptan SUCCINATE 25 MG TAB PO PRN ×2 (22:15)
[2021-11-25] MEDS: CHOLECALCIFEROL (VITD3) 1,000UNIT=25mCg TAB PO SCH (23:13)
[2021-11-25] MEDS: CYCLOBENZAPRINE HCL 10 MG TAB PO SCH (23:13)
[2021-11-25] MEDS: TOLTERODINE TARTRATE 1 MG TAB PO SCH (23:14)
[2021-11-25] MEDS: FAMOTIDINE 20 MG TAB PO SCH (23:15)
[2021-11-25] MEDS: VANCOMYCIN 1GM/250ML 250 ML IV SCH (23:26)
[2021-11-26] VITALS (7 sets, daily range): BP systolic 132–170; BP diastolic 65–83
[2021-11-26] MEDS: CYCLOBENZAPRINE HCL 10 MG TAB PO SCH ×3 (05:42→21:08)
[2021-11-26] MEDS: ACETAMINOPHEN 650 MG RECT SUPP PR SCH ×4 (05:45→18:00)
[2021-11-26 06:57] LABS: Albumin 3.2 g/dL (3.4-5.0); BUN/Creatinine Ratio 31.7; Calcium 9.1 mg/dL (8.5-10.1); Phosphorus 4.8 mg/dL (2.5-4.90); Potassium 4.6 mmol/L (3.5-5.1)
[2021-11-26] MEDS: GABAPENTIN 300 MG CAP PO SCH (09:26)
[2021-11-26] MEDS: CHOLECALCIFEROL (VITD3) 1,000UNIT=25mCg TAB PO SCH ×2 (09:26→21:08)
[2021-11-26] MEDS: ASCORBIC ACID 500 MG TAB PO SCH (09:27)
[2021-11-26] MEDS: POTASSIUM CHL 20 Meq TABLET PO SCH (09:27)
[2021-11-26] MEDS: FUROSEMIDE 20 MG TAB PO SCH (09:27)
[2021-11-26] MEDS: ATORVASTATIN 20 MG TAB PO SCH (09:28)
[2021-11-26] MEDS: cefTRIAXone 1GM/50ML D5W 50 ML IV SCH (09:28)
[2021-11-26] MEDS: MULTIPLE VITAMINS W/ MINERALS TAB PO SCH ×2 (09:28→21:08)
[2021-11-26] MEDS: FAMOTIDINE 20 MG TAB PO SCH ×2 (09:29→21:08)
[2021-11-26] MEDS: NIFEdipine ER 30 MG TAB PO SCH (09:30)
[2021-11-26] MEDS: TOLTERODINE TARTRATE 1 MG TAB PO SCH ×2 (09:30→21:14)
[2021-11-26] MEDS: ZINC GLUCONATE 50 MG PO SCH (09:55)
[2021-11-26] MEDS: DICLOFENAC SODIUM 25 MG PO SCH (09:55)
[2021-11-26 10:15] LABS: Basophils # (auto) 0 10 ^3/uL (0-0.2); Basophils % (auto) 0.6 % (0.0-2.0); Eosinophils # (auto) 0.2 10 ^3/uL (0-0.8); Eosinophils % (auto) 3.7 % (0.0-7.0); Hematocrit 38.9 % (36.0-46.0); Hemoglobin 12.7 g/dL (12.2-16.2); Lymphocytes % (auto) 15.1 % (10.0-50.0); Mean Corpuscular Hemoglobin 28.9 pg (28.0-32.0); Mean Corpuscular Hgb Conc. 32.7 g/dL (32.0-36.0); Mean Corpuscular Volume 88.4 fL (80.0-100.0); Monocytes # (auto) 0.8 10 ^3/uL (0-1.3); Monocytes % (auto) 11.6 % (0.0-12.0); Neutrophils # (auto) 4.5 10 ^3/uL (1.6-8.6); Nucleated Red Blood Cells % 0.1 %; Red Cell Distribution Width 15.5 % (11.8-14.3); White Blood Cell 6.5 10^3/uL (4.4-10.8)
[2021-11-26 14:23] LABS: INR 1.03 (0.9-1.15); Partial Thromboplastin Time 29.9 sec (24.6-33.4)
[2021-11-26] MEDS: ACETAMINOPHEN 325 MG TAB PO PRN (21:13)
[2021-11-26] MEDS: VANCOMYCIN 1GM/250ML 250 ML IV SCH (21:16)
[2021-11-27 05:00] VITALS: BP 135/59
[2021-11-27] MEDS: CYCLOBENZAPRINE HCL 10 MG TAB PO SCH ×3 (05:30→21:42)
[2021-11-27 09:24] VITALS: BP 143/69
[2021-11-27] MEDS: DICLOFENAC SODIUM 25 MG PO SCH (10:00)
[2021-11-27] MEDS: ASCORBIC ACID 500 MG TAB PO SCH (10:00)
[2021-11-27] MEDS: ZINC GLUCONATE 50 MG PO SCH (10:00)
[2021-11-27] MEDS: cefTRIAXone 1GM/50ML D5W 50 ML IV SCH (10:44)
[2021-11-27] MEDS: ATORVASTATIN 20 MG TAB PO SCH (10:45)
[2021-11-27] MEDS: TOLTERODINE TARTRATE 1 MG TAB PO SCH ×2 (10:45→21:43)
[2021-11-27] MEDS: CHOLECALCIFEROL (VITD3) 1,000UNIT=25mCg TAB PO SCH ×2 (10:45→21:42)
[2021-11-27] MEDS: POTASSIUM CHL 20 Meq TABLET PO SCH (10:46)
[2021-11-27] MEDS: GABAPENTIN 300 MG CAP PO SCH (10:46)
[2021-11-27] MEDS: FAMOTIDINE 20 MG TAB PO SCH ×2 (10:46→21:42)
[2021-11-27] MEDS: FUROSEMIDE 20 MG TAB PO SCH (10:47)
[2021-11-27] MEDS: NIFEdipine ER 30 MG TAB PO SCH (10:47)
[2021-11-27] MEDS: MULTIPLE VITAMINS W/ MINERALS TAB PO SCH ×2 (10:53→21:42)
[2021-11-27 13:00] VITALS: BP 137/67
[2021-11-27] MEDS: ACETAMINOPHEN 325 MG TAB PO PRN ×2 (13:00→22:08)
[2021-11-27 17:25] VITALS: BP 145/69
[2021-11-27] MEDS ORDERED: LIDOCAINE 1% (LOCAL ANESTH.) PF 5ml SDV ID ONE (18:45)
[2021-11-27] MEDS: VANCOMYCIN 1GM/250ML 250 ML IV SCH (21:43)
[2021-11-27] MEDS: SODIUM CHLOR 0.9% PF (SALINE LOCK) 10ML VIAL/SYR IV SCH (21:43)
[2021-11-27 22:00] VITALS: BP 141/74
[2021-11-28 05:00] VITALS: BP 129/62
[2021-11-28] MEDS: CYCLOBENZAPRINE HCL 10 MG TAB PO SCH ×3 (05:51→22:02)
[2021-11-28 09:12] VITALS: BP 135/81
[2021-11-28] MEDS: POTASSIUM CHL 20 Meq TABLET PO SCH (09:20)
[2021-11-28] MEDS: NIFEdipine ER 30 MG TAB PO SCH (09:20)
[2021-11-28] MEDS: MULTIPLE VITAMINS W/ MINERALS TAB PO SCH ×2 (09:20→22:02)
[2021-11-28] MEDS: ASCORBIC ACID 500 MG TAB PO SCH (09:21)
[2021-11-28] MEDS: GABAPENTIN 300 MG CAP PO SCH (09:21)
[2021-11-28] MEDS: FUROSEMIDE 20 MG TAB PO SCH (09:21)
[2021-11-28] MEDS: ATORVASTATIN 20 MG TAB PO SCH (09:21)
[2021-11-28] MEDS: FAMOTIDINE 20 MG TAB PO SCH ×2 (09:21→22:02)
[2021-11-28] MEDS: cefTRIAXone 1GM/50ML D5W 50 ML IV SCH (09:22)
[2021-11-28] MEDS: TOLTERODINE TARTRATE 1 MG TAB PO SCH ×2 (09:22→22:03)
[2021-11-28] MEDS: SODIUM CHLOR 0.9% PF (SALINE LOCK) 10ML VIAL/SYR IV SCH ×2 (11:02→22:03)
[2021-11-28] MEDS: ZINC GLUCONATE 50 MG PO SCH (12:03)
[2021-11-28] MEDS: DICLOFENAC SODIUM 25 MG PO SCH (12:04)
[2021-11-28 13:00] VITALS: BP 134/40
[2021-11-28] MEDS: CHOLECALCIFEROL (VITD3) 1,000UNIT=25mCg TAB PO SCH ×2 (14:02→22:02)
[2021-11-28 16:43] VITALS: BP 121/77
[2021-11-28 22:00] VITALS: BP 145/73
[2021-11-28] MEDS: VANCOMYCIN 1GM/250ML 250 ML IV SCH (22:03)
[2021-11-29 05:00] VITALS: BP 136/63
[2021-11-29] MEDS: CYCLOBENZAPRINE HCL 10 MG TAB PO SCH (06:10)
[2021-11-29] MEDS: GABAPENTIN 300 MG CAP PO SCH (09:15)
[2021-11-29] MEDS: cefTRIAXone 1GM/50ML D5W 50 ML IV SCH (09:15)
[2021-11-29] MEDS: NIFEdipine ER 30 MG TAB PO SCH (09:20)
[2021-11-29] MEDS: ATORVASTATIN 20 MG TAB PO SCH (09:20)
[2021-11-29] MEDS: ASCORBIC ACID 500 MG TAB PO SCH (09:20)
[2021-11-29] MEDS: MULTIPLE VITAMINS W/ MINERALS TAB PO SCH ×2 (09:21→22:16)
[2021-11-29] MEDS: FUROSEMIDE 20 MG TAB PO SCH (09:21)
[2021-11-29] MEDS: FAMOTIDINE 20 MG TAB PO SCH ×2 (09:21→22:16)
[2021-11-29] MEDS: POTASSIUM CHL 20 Meq TABLET PO SCH (09:21)
[2021-11-29] MEDS: CHOLECALCIFEROL (VITD3) 1,000UNIT=25mCg TAB PO SCH ×2 (09:21→22:16)
[2021-11-29] MEDS: SODIUM CHLOR 0.9% PF (SALINE LOCK) 10ML VIAL/SYR IV SCH ×2 (09:30→22:17)
[2021-11-29] MEDS: DICLOFENAC SODIUM 25 MG PO SCH (10:00)
[2021-11-29] MEDS: ZINC GLUCONATE 50 MG PO SCH (10:00)
[2021-11-29 13:00] VITALS: BP 136/81
[2021-11-29] MEDS ORDERED: LORazepam 2MG/ML-1ML VIAL IV PRN (16:30)
[2021-11-29 17:00] VITALS: BP 139/88
[2021-11-29] MEDS: ACETAMINOPHEN 325 MG TAB PO PRN (18:04)
[2021-11-29 22:00] VITALS: BP 137/65
[2021-11-29] MEDS: VANCOMYCIN 1GM/250ML 250 ML IV SCH (22:17)
[2021-11-30 05:00] VITALS: BP 122/58
[2021-11-30 08:00] VITALS: BP 141/79
[2021-11-30 08:29] VITALS: BP 141/79
[2021-11-30] MEDS: ZINC GLUCONATE 50 MG PO SCH (10:00)
[2021-11-30] MEDS: DICLOFENAC SODIUM 25 MG PO SCH (10:00)
[2021-11-30] MEDS: CHOLECALCIFEROL (VITD3) 1,000UNIT=25mCg TAB PO SCH ×2 (11:42→20:00)
[2021-11-30] MEDS: FAMOTIDINE 20 MG TAB PO SCH ×2 (11:42→20:00)
[2021-11-30] MEDS: MULTIPLE VITAMINS W/ MINERALS TAB PO SCH ×2 (11:43→20:00)
[2021-11-30] MEDS: ASCORBIC ACID 500 MG TAB PO SCH (11:43)
[2021-11-30] MEDS: GABAPENTIN 300 MG CAP PO SCH (11:43)
[2021-11-30] MEDS: ATORVASTATIN 20 MG TAB PO SCH (11:43)
[2021-11-30] MEDS: POTASSIUM CHL 20 Meq TABLET PO SCH (11:43)
[2021-11-30] MEDS: FUROSEMIDE 20 MG TAB PO SCH (11:44)
[2021-11-30] MEDS: NIFEdipine ER 30 MG TAB PO SCH (11:46)
[2021-11-30] MEDS: cefTRIAXone 1GM/50ML D5W 50 ML IV SCH (11:47)
[2021-11-30 12:31] VITALS: BP 143/77
[2021-11-30] MEDS: SODIUM CHLOR 0.9% PF (SALINE LOCK) 10ML VIAL/SYR IV SCH ×2 (13:55→22:33)
[2021-11-30] MEDS ORDERED: VANCOMYCIN PER PHARMACY 0 MG IV SCH (14:15)
[2021-11-30 18:42] LABS: Albumin 3.4 g/dL (3.4-5.0); BUN/Creatinine Ratio 21.1; Calcium 8.8 mg/dL (8.5-10.1); Phosphorus 3.9 mg/dL (2.5-4.90); Potassium 4.1 mmol/L (3.5-5.1)
[2021-11-30] MEDS: ACETAMINOPHEN 325 MG TAB PO PRN (20:00)
[2021-11-30 22:00] VITALS: BP 148/67
[2021-11-30] MEDS: VANCOMYCIN 1GM/250ML 250 ML IV SCH (22:34)
[2021-12-01 05:00] VITALS: BP 111/51
[2021-12-01 06:58] LABS: Albumin 3.1 g/dL (3.4-5.0); BUN/Creatinine Ratio 23.5; Calcium 8.6 mg/dL (8.5-10.1); Phosphorus 4.3 mg/dL (2.5-4.90); Potassium 4.1 mmol/L (3.5-5.1)
[2021-12-01 09:00] VITALS: BP 129/72
[2021-12-01] MEDS: cefTRIAXone 1GM/50ML D5W 50 ML IV SCH (09:16)
[2021-12-01] MEDS: POTASSIUM CHL 20 Meq TABLET PO SCH (09:17)
[2021-12-01] MEDS: CHOLECALCIFEROL (VITD3) 1,000UNIT=25mCg TAB PO SCH ×2 (09:18→20:38)
[2021-12-01] MEDS: MULTIPLE VITAMINS W/ MINERALS TAB PO SCH ×2 (09:18→20:37)
[2021-12-01] MEDS: ASCORBIC ACID 500 MG TAB PO SCH (09:19)
[2021-12-01] MEDS: GABAPENTIN 300 MG CAP PO SCH (09:20)
[2021-12-01] MEDS: FUROSEMIDE 20 MG TAB PO SCH (09:21)
[2021-12-01] MEDS: ATORVASTATIN 20 MG TAB PO SCH (09:21)
[2021-12-01] MEDS: FAMOTIDINE 20 MG TAB PO SCH ×2 (09:21→20:38)
[2021-12-01] MEDS: NIFEdipine ER 30 MG TAB PO SCH (09:22)
[2021-12-01] MEDS: DICLOFENAC SODIUM 25 MG PO SCH (09:23)
[2021-12-01] MEDS: ZINC GLUCONATE 50 MG PO SCH (09:23)
[2021-12-01] MEDS: SODIUM CHLOR 0.9% PF (SALINE LOCK) 10ML VIAL/SYR IV SCH ×2 (09:23→22:29)
[2021-12-01 13:00] VITALS: BP 146/70
[2021-12-01 17:00] VITALS: BP 131/60
[2021-12-01] MEDS: ACETAMINOPHEN 325 MG TAB PO PRN (20:38)
[2021-12-01 22:00] VITALS: BP 132/81
[2021-12-01] MEDS: VANCOMYCIN 1GM/250ML 250 ML IV SCH (22:29)
[2021-12-02 05:00] VITALS: BP 118/56
[2021-12-02] MEDS: DICLOFENAC SODIUM 25 MG PO SCH (07:45)
[2021-12-02] MEDS: ZINC GLUCONATE 50 MG PO SCH (07:45)
[2021-12-02] MEDS: cefTRIAXone 1GM/50ML D5W 50 ML IV SCH (08:45)
[2021-12-02 08:48] VITALS: BP 117/57
[2021-12-02] MEDS: ASCORBIC ACID 500 MG TAB PO SCH (08:56)
[2021-12-02] MEDS: MULTIPLE VITAMINS W/ MINERALS TAB PO SCH (08:56)
[2021-12-02] MEDS: CHOLECALCIFEROL (VITD3) 1,000UNIT=25mCg TAB PO SCH (08:57)
[2021-12-02] MEDS: GABAPENTIN 300 MG CAP PO SCH (08:57)
[2021-12-02] MEDS: NIFEdipine ER 30 MG TAB PO SCH (08:58)
[2021-12-02] MEDS: FAMOTIDINE 20 MG TAB PO SCH (08:58)
[2021-12-02] MEDS: FUROSEMIDE 20 MG TAB PO SCH (08:59)
[2021-12-02] MEDS: POTASSIUM CHL 20 Meq TABLET PO SCH (08:59)
[2021-12-02] MEDS: SODIUM CHLOR 0.9% PF (SALINE LOCK) 10ML VIAL/SYR IV SCH (08:59)
[2021-12-02] MEDS: ATORVASTATIN 20 MG TAB PO SCH (09:01)
[2021-12-02 12:07] LABS: Basophils # (auto) 0.1 10 ^3/uL (0-0.2); Basophils % (auto) 0.8 % (0.0-2.0); Eosinophils # (auto) 0.2 10 ^3/uL (0-0.8); Eosinophils % (auto) 2.3 % (0.0-7.0); Hematocrit 39.6 % (36.0-46.0); Hemoglobin 12.9 g/dL (12.2-16.2); Lymphocytes # (auto) 1.4 10 ^3/uL (0.4-5.4); Lymphocytes % (auto) 17.3 % (10.0-50.0); Mean Corpuscular Hemoglobin 28.4 pg (28.0-32.0); Mean Corpuscular Hgb Conc. 32.5 g/dL (32.0-36.0); Mean Corpuscular Volume 87.3 fL (80.0-100.0); Monocytes # (auto) 0.7 10 ^3/uL (0-1.3); Monocytes % (auto) 9.1 % (0.0-12.0); Neutrophils # (auto) 5.7 10 ^3/uL (1.6-8.6); Neutrophils % (auto) 70.5 % (37.0-80.0); Nucleated Red Blood Cells % 0.1 %; Red Blood Cells 4.53 10^6/uL (4.0-5.20); Red Cell Distribution Width 14.9 % (11.8-14.3); White Blood Cell 8.1 10^3/uL (4.4-10.8)
[2021-12-02 12:19] LABS: Albumin 3.2 g/dL (3.4-5.0)
[2021-12-02 12:22] LABS: BUN/Creatinine Ratio 17.2; Bilirubin, Total 0.2 mg/dL (0.2-1.0); Total Protein 6.8 g/dL (6.4-8.2)
[2021-12-02 12:54] VITALS: BP 132/64
[2021-12-02 16:01] VITALS: BP 128/71
[2021-12-02 16:13] VITALS: BP 137/72
== END 2021-12-02 16:30 | disposition home health service (06) | DRG 549 ==
LOC: WEST WING 17:13 → UNDOADMIN 17:13 → WEST WING 18:20
PROVIDERS: ADMIT Internal Medicine Cardiovascular Disease; ATTEND Internal Medicine Cardiovascular Disease
PROC: 02HV33Z Insertion of Infusion Device into Superior Vena Cava, Percutaneous Approach (ICD-10-PCS; principal; 2021-11-27)
DX: M00.9 Pyogenic arthritis, unspecified (principal); G25.9 Extrapyramidal and movement disorder, unspecified; Z96.642 Presence of left artificial hip joint; I10 Essential (primary) hypertension; F17.200 Nicotine dependence, unspecified, uncomplicated; G89.29 Other chronic pain; Z96.643 Presence of artificial hip joint, bilateral; Z82.49 Family history of ischemic heart disease and other diseases of the circulatory system; Z82.0 Family history of epilepsy and other diseases of the nervous system; Z79.811 Long term (current) use of aromatase inhibitors; Z82.3 Family history of stroke; Z90.10 Acquired absence of unspecified breast and nipple
CPT/HCPCS: 36415; 36569; 70551; 71045; 72131; 72148; 73502; 73700; 80053; 80061; 80069; 80202; 82306; 82565; 82607; 83036; 84439; 84443; 85025; 85610; 85652; 85730; 86141; 87040; 93926; 95819; 96365; 96367; 97110; 97116; 97163; 97530; G0378; G0463; J0696; J1642

== ENCOUNTER → 2022-01-11 | Outpatient (CLI) | payer MEDICARE, OTHER ==
[~2022-01-11] MED LIST changes: +CYCL-839 PO; +FURO20TA3 PO; +POTA-220 PO
[2022-01-11 12:18] LABS: BUN/Creatinine Ratio 38.1; Calcium 8.9 mg/dL (8.5-10.1); Potassium 4.6 mmol/L (3.5-5.1)
[2022-01-11 12:19] LABS: Basophils # (auto) 0 10 ^3/uL (0-0.2); Basophils % (auto) 0.9 % (0.0-2.0); Eosinophils # (auto) 0.2 10 ^3/uL (0-0.8); Eosinophils % (auto) 3.4 % (0.0-7.0); Hematocrit 39.5 % (36.0-46.0); Hemoglobin 13.1 g/dL (12.2-16.2); Lymphocytes # (auto) 1.5 10 ^3/uL (0.4-5.4); Lymphocytes % (auto) 33.2 % (10.0-50.0); Mean Corpuscular Hemoglobin 29.4 pg (28.0-32.0); Mean Corpuscular Hgb Conc. 33.2 g/dL (32.0-36.0); Mean Corpuscular Volume 88.5 fL (80.0-100.0); Monocytes # (auto) 0.5 10 ^3/uL (0-1.3); Neutrophils # (auto) 2.4 10 ^3/uL (1.6-8.6); Neutrophils % (auto) 52.5 % (37.0-80.0); Nucleated Red Blood Cells % 0.2 %; Red Blood Cells 4.46 10^6/uL (4.0-5.20); Red Cell Distribution Width 15.8 % (11.8-14.3); White Blood Cell 4.7 10^3/uL (4.4-10.8)
== END | disposition home or self-care (01) ==
LOC: LAB 09:37
PROVIDERS: ATTEND Internal Medicine Cardiovascular Disease
DX: R06.02 Shortness of breath (principal)
CPT/HCPCS: 36415; 80048; 85025

== ENCOUNTER → 2022-02-19 | Outpatient (CLI) | payer MEDICARE, OTHER ==
[2022-02-19 16:22] LABS: Basophils # (auto) 0 10 ^3/uL (0-0.2); Basophils % (auto) 0.6 % (0.0-2.0); Eosinophils # (auto) 0.1 10 ^3/uL (0-0.8); Eosinophils % (auto) 1.9 % (0.0-7.0); Hemoglobin 13.8 g/dL (12.2-16.2); Lymphocytes # (auto) 1.8 10 ^3/uL (0.4-5.4); Lymphocytes % (auto) 27.6 % (10.0-50.0); Mean Corpuscular Hemoglobin 29.6 pg (28.0-32.0); Mean Corpuscular Volume 89.9 fL (80.0-100.0); Monocytes # (auto) 0.6 10 ^3/uL (0-1.3); Monocytes % (auto) 9.1 % (0.0-12.0); Neutrophils % (auto) 60.8 % (37.0-80.0); Nucleated Red Blood Cells % 0.1 %; Red Blood Cells 4.67 10^6/uL (4.0-5.20); Red Cell Distribution Width 16.1 % (11.8-14.3); White Blood Cell 6.6 10^3/uL (4.4-10.8)
== END | disposition home or self-care (01) ==
LOC: LAB 12:30
PROVIDERS: ATTEND Internal Medicine Cardiovascular Disease
DX: R79.82 Elevated C-reactive protein (CRP) (principal)
CPT/HCPCS: 36415; 85025; 85652; 86141

== ENCOUNTER → 2022-06-16 | Outpatient (CLI) | payer MEDICARE, OTHER | END | disposition home or self-care (01) | LOC: Rad HDHVI 13:41 | PROVIDERS: ATTEND Internal Medicine Cardiovascular Disease | DX: Z01.818 Encounter for other preprocedural examination (principal); R07.9 Chest pain, unspecified | CPT/HCPCS: 71046 ==

== ENCOUNTER 2022-07-19 06:06 | Inpatient (IN) | payer MEDICARE, OTHER ==
[2022-07-16 11:56] LABS: Basophils # (auto) 0.1 10 ^3/uL (0-0.2); Basophils % (auto) 0.8 % (0.0-2.0); Eosinophils # (auto) 0.2 10 ^3/uL (0-0.8); Eosinophils % (auto) 3.6 % (0.0-7.0); Hematocrit 39.1 % (36.0-46.0); Hemoglobin 12.9 g/dL (12.2-16.2); Lymphocytes # (auto) 2.3 10 ^3/uL (0.4-5.4); Lymphocytes % (auto) 34.9 % (10.0-50.0); Mean Corpuscular Volume 90.7 fL (80.0-100.0); Monocytes # (auto) 0.5 10 ^3/uL (0-1.3); Monocytes % (auto) 7.8 % (0.0-12.0); Neutrophils # (auto) 3.4 10 ^3/uL (1.6-8.6); Neutrophils % (auto) 52.9 % (37.0-80.0); Nucleated Red Blood Cells % 0.1 %; Red Blood Cells 4.31 10^6/uL (4.0-5.20); Red Cell Distribution Width 14.4 % (11.8-14.3); White Blood Cell 6.5 10^3/uL (4.4-10.8)
[2022-07-16 12:10] LABS: INR 0.99 (0.9-1.15); Partial Thromboplastin Time 27.1 sec (24.6-33.4)
[2022-07-16 12:17] LABS: Urine Bacteria FEW /hpf (None Seen); Urine Blood Negative /uL (Negative); Urine Mucus FEW (None Seen); Urine Specific Gravity 1.024 (1.001-1.035); Urine WBC 9 /hpf (0 - 5)
[2022-07-16 12:32] LABS: Albumin 3.6 g/dL (3.4-5.0); Calcium 8.9 mg/dL (8.5-10.1); Potassium 4.4 mmol/L (3.5-5.1)
[2022-07-16 12:36] LABS: BUN/Creatinine Ratio 27.3 (10.0-20.0); Bilirubin, Total 0.2 mg/dL (0.2-1.0)
[2022-07-19] VITALS (14 sets, daily range): BP systolic 112–148; BP diastolic 60–92
[~2022-07-19] VITALS: Ht 167.6 cm; Wt 90.7 kg
[~2022-07-19 06:06] MED LIST changes: -ASCO500T11 PO; -CHOL100083 PO; -ZINC50TA7 PO
[2022-07-19] MEDS ORDERED: ceFAZolin 1GM/50ML 100 ML IV ONE (06:29)
[2022-07-19] MEDS ORDERED: ACETAMINOPHEN IV 100 ML IV ONE (06:29)
[2022-07-19] MEDS: ACETAMINOPHEN IV 1000 MG/100ML (10MG/ML) IV ONE ×2 (06:30→07:00)
[2022-07-19] MEDS: CELECOXIB 100 MG CAP PO ONE ×2 (06:30→07:00)
[2022-07-19] MEDS: PREGABALIN CAPSULE 75 MG CAP PO ONE ×2 (06:30→07:00)
[2022-07-19] MEDS ORDERED: TETRACAINE 1% INJ 2 ML VIAL IJ ONE (07:03)
[2022-07-19] MEDS: BUPIVACAINE 0.25% INJ 50ML VIAL ONE ×2 (07:07→09:16)
[2022-07-19] MEDS ORDERED: TRANEXAMIC ACID 20 ML ONE (07:07)
[2022-07-19] MEDS ORDERED: fentaNYL CITRATE 100 MCG/2 ML VL ONE (07:08)
[2022-07-19] MEDS ORDERED: EPINEPHrine HCL 1 MG/1 ML AMP ONE (07:08)
[2022-07-19] MEDS ORDERED: DexAMETHasone SOD PHOS 10MG/1ML VIAL INJ ONE (07:08)
[2022-07-19] MEDS ORDERED: MIDAZOLAM HCL 2MG/2ML 2ml VIAL (1mg/ml) ONE ×2 (07:08→07:09)
[2022-07-19] MEDS ORDERED: MORPHINE SULF PF 5 MG/10 ML VIAL ONE (07:08)
[2022-07-19] MEDS ORDERED: SODIUM CHLORIDE LOCK 10 ML ONE (07:09)
[2022-07-19] MEDS ORDERED: ONDANSETRON HCL 4 MG/2 ML VIAL ONE (07:09)
[2022-07-19] MEDS ORDERED: PROPOFOL 10 MG/ML 20 ML IV ONE ×2 (07:09→08:23)
[2022-07-19] MEDS: VANCOMYCIN HCL 1000 MG VL ONE ×2 (07:11→09:09)
[2022-07-19] MEDS: KETOROLAC TROMETH 30 MG/ML 1ML VIAL ONE ×2 (07:12→09:16)
[2022-07-19] MEDS ORDERED: HYDROmorphone HCL 2 MG/ML VL/or syr IV PRN ×3 (07:30→09:15)
[2022-07-19] MEDS ORDERED: MORPHINE SULFATE INJ 2 MG/ml SYRG IV PRN ×2 (07:30→09:15)
[2022-07-19] MEDS ORDERED: METOCLOPRAMIDE HCL 5MG/ml INJ 2ml VIAL IV PRN (07:30)
[2022-07-19] MEDS: LACTATED RINGER'S 1,000 ML IV SCH ×2 (09:15→19:15)
[2022-07-19] MEDS ORDERED: CARISOPRODOL 350 MG TAB PO PRN (09:15)
[2022-07-19] MEDS ORDERED: OXYCODONE W/ ACETAMINOPHEN 5/325MG TABLET PO PRN (09:15)
[2022-07-19] MEDS ORDERED: NALOXONE HCL 0.4 MG/ML VIAL IV PRN (09:15)
[2022-07-19] MEDS ORDERED: NITROGLYCERIN 0.4 MG SL TAB SL PRN (09:15)
[2022-07-19] MEDS ORDERED: CYCLOBENZAPRINE HCL 10 MG TAB PO PRN (09:15)
[2022-07-19] MEDS: ceFAZolin 1GM/50ML 50 ML IV SCH ×3 (09:15→21:36)
[2022-07-19] MEDS ORDERED: ACETAMINOPHEN 325 MG TAB PO PRN (09:15)
[2022-07-19] MEDS ORDERED: diphenhdrAMINE HCL 50 MG/1 ML VL IV PRN (09:15)
[2022-07-19] MEDS ORDERED: BISACODYL 5 MG EC TAB PO PRN (09:15)
[2022-07-19] MEDS ORDERED: SUMAtriptan SUCCINATE 25 MG TAB PO PRN (09:30)
[2022-07-19] MEDS: GABAPENTIN 300 MG CAP PO SCH (10:00)
[2022-07-19] MEDS: ENOXAPARIN SOD 40 MG/0.4 ML SYRINGE SC SCH (10:00)
[2022-07-19] MEDS: FUROSEMIDE 20 MG TAB PO SCH (10:00)
[2022-07-19] MEDS: POTASSIUM CHL 20 Meq TABLET PO SCH (10:00)
[2022-07-19] MEDS: NIFEdipine ER 30 MG TAB PO SCH (10:00)
[2022-07-19] MEDS: DOCUSATE SOD 100 MG CAP PO SCH ×2 (10:00→21:36)
[2022-07-19] MEDS: MULTIPLE VITAMINS W/ MINERALS TAB PO SCH ×2 (10:00→21:37)
[2022-07-19] MEDS: FAMOTIDINE 20 MG TAB PO SCH ×2 (10:00→21:27)
[2022-07-19] MEDS: ATORVASTATIN 20 MG TAB PO SCH (10:00)
[2022-07-19] MEDS: ONDANSETRON HCL 4 MG/2 ML VIAL IV PRN ×2 (13:20→21:35)
[2022-07-19] MEDS: SODIUM CHLOR 0.9% PF (SALINE LOCK) 10ML VIAL/SYR IV SCH ×2 (18:23→21:27)
[2022-07-20] VITALS (17 sets, daily range): BP systolic 120–159; BP diastolic 57–89
[2022-07-20] MEDS: ONDANSETRON HCL 4 MG/2 ML VIAL IV PRN (05:09)
[2022-07-20] MEDS: SODIUM CHLOR 0.9% PF (SALINE LOCK) 10ML VIAL/SYR IV SCH (05:43)
[2022-07-20 06:35] LABS: Hematocrit 35.1 % (36.0-46.0); Hemoglobin 11.9 g/dL (12.2-16.2)
[2022-07-20 06:39] LABS: Albumin 3.2 g/dL (3.4-5.0); BUN/Creatinine Ratio 34.1 (10.0-20.0); Bilirubin, Total 0.3 mg/dL (0.2-1.0); Calcium 8.6 mg/dL (8.5-10.1); Total Protein 6.2 g/dL (6.4-8.2)
[2022-07-20 07:34] LABS: Potassium 5.6 mmol/L (3.5-5.1)
[2022-07-20] MEDS: ENOXAPARIN SOD 40 MG/0.4 ML SYRINGE SC SCH (09:10)
[2022-07-20] MEDS: MULTIPLE VITAMINS W/ MINERALS TAB PO SCH (09:11)
[2022-07-20] MEDS: GABAPENTIN 300 MG CAP PO SCH (09:11)
[2022-07-20] MEDS: DOCUSATE SOD 100 MG CAP PO SCH (09:11)
[2022-07-20] MEDS: ATORVASTATIN 20 MG TAB PO SCH (09:11)
[2022-07-20] MEDS: FUROSEMIDE 20 MG TAB PO SCH (09:12)
[2022-07-20] MEDS: FAMOTIDINE 20 MG TAB PO SCH (09:12)
[2022-07-20] MEDS: NIFEdipine ER 30 MG TAB PO SCH (09:13)
[2022-07-20] MEDS: POTASSIUM CHL 20 Meq TABLET PO SCH (10:00)
[2022-07-20] MEDS ORDERED: SUGAMMADEX 200mg/2ml Vial (100MG/ML) IV ONE (10:16)
== END 2022-07-20 17:12 | disposition home or self-care (01) | DRG 470 ==
LOC: SUR 06:06 → TELE 09:14 → TELE-CENTR 12:23
PROVIDERS: ADMIT Orthopaedic Surgery Adult Reconstructive Orthopaedic Surgery; ATTEND Orthopaedic Surgery Adult Reconstructive Orthopaedic Surgery
PROC: 8E0YXBZ Computer Assisted Procedure of Lower Extremity (ICD-10-PCS; 2022-07-19)
PROC: 0SR90JZ Replacement of Right Hip Joint with Synthetic Substitute, Open Approach (ICD-10-PCS; principal; 2022-07-19 07:32)
DX: M16.11 Unilateral primary osteoarthritis, right hip (principal); E78.5 Hyperlipidemia, unspecified; G47.33 Obstructive sleep apnea (adult) (pediatric); I10 Essential (primary) hypertension; Z88.8 Allergy status to other drugs, medicaments and biological substances
CPT/HCPCS: 36415; 72170; 73501; 80053; 81001; 85014; 85018; 85025; 85610; 85730; 86850; 86900; 86901; 87081; 97163; G0378; J0131; J0171; J0690; J1100; J1885; J2250; J2405; J2704; J3490

== ENCOUNTER → 2023-01-04 | Outpatient (CLI) | payer MEDICARE, OTHER ==
[~2023-01-04] VITALS: Ht 167.6 cm; Wt 88.0 kg
[~2023-01-04] MED LIST changes: +GABA-1250 PO; -GABA300C10 PO
== END | disposition home or self-care (01) ==
LOC: Rad HDHVI 08:51
PROVIDERS: ATTEND Internal Medicine Cardiovascular Disease
DX: I11.0 Hypertensive heart disease with heart failure (principal); I50.9 Heart failure, unspecified; R06.02 Shortness of breath; J44.9 Chronic obstructive pulmonary disease, unspecified; E78.5 Hyperlipidemia, unspecified
CPT/HCPCS: 78472; 96374; 96375; A9505

== ENCOUNTER → 2023-01-06 | Outpatient (CLI) | payer MEDICARE, OTHER | END | disposition home or self-care (01) | LOC: Rad HDHVI 08:56 | PROVIDERS: ATTEND Internal Medicine Cardiovascular Disease | DX: I07.1 Rheumatic tricuspid insufficiency (principal); I10 Essential (primary) hypertension; I73.9 Peripheral vascular disease, unspecified | CPT/HCPCS: 93306 ==

== ENCOUNTER → 2023-01-19 | Outpatient (CLI) | payer MEDICARE, OTHER | END | disposition home or self-care (01) | LOC: Rad HDHVI 08:48 | PROVIDERS: ATTEND Internal Medicine Cardiovascular Disease | DX: I10 Essential (primary) hypertension (principal) | CPT/HCPCS: 93880 ==

== ENCOUNTER 2023-11-29 15:43 | Emergency (ER) | payer MEDICARE, OTHER ==
[~2023-11-29] VITALS: Ht 157.5 cm; Wt 90.0 kg
[2023-11-29 18:23] VITALS: BP 126/72; PULSE 74; RESP 14; TEMP 98.2; O2SAT 96
[2023-11-29] MEDS: KETOROLAC TROMETH 30 MG/ML 1ML VIAL IV ONE (18:42)
[2023-11-29] MEDS ORDERED: HYDR-4902 PO (19:20)
== END 2023-11-29 19:17 | disposition home or self-care (01) ==
LOC: ER 15:43 → EDBD 15:43 → ER 19:17
DX: S82.432A Displaced oblique fracture of shaft of left fibula, initial encounter for closed fracture (principal); S82.52XA Displaced fracture of medial malleolus of left tibia, initial encounter for closed fracture; Z88.5 Allergy status to narcotic agent; Z79.899 Other long term (current) drug therapy; X50.1XXA Overexertion from prolonged static or awkward postures, initial encounter; Y93.89 Activity, other specified; Y92.89 Other specified places as the place of occurrence of the external cause; Y99.8 Other external cause status
CPT/HCPCS: 29515; 73610; 96374; 99283; J1885

== ENCOUNTER → 2024-01-04 | Outpatient (CLI) | payer MEDICARE, OTHER ==
[~2024-01-04] MED LIST changes: +HYDR-4902 PO
== END | disposition home or self-care (01) ==
LOC: Rad HDHVI 09:43
PROVIDERS: ATTEND Internal Medicine Cardiovascular Disease
DX: M25.572 Pain in left ankle and joints of left foot (principal)
CPT/HCPCS: 93970

== ENCOUNTER → 2024-01-10 | Outpatient (CLI) | payer MEDICARE, OTHER | END | disposition home or self-care (01) | LOC: Rad HDHVI 08:36 | PROVIDERS: ATTEND Internal Medicine Cardiovascular Disease | DX: I10 Essential (primary) hypertension (principal); R06.02 Shortness of breath | CPT/HCPCS: 93306 ==

== ENCOUNTER → 2024-01-30 | Outpatient (CLI) | payer MEDICARE, OTHER ==
[~2024-01-30] VITALS: Ht 167.6 cm; Wt 81.6 kg
[2024-01-30 09:27] VITALS: BP 110/80; PULSE 61; RESP 18; O2SAT 95
[2024-01-30] MEDS: ceFAZolin 1GM/50ML 100 ML IV ONE (09:44)
[2024-01-30] MEDS: ceFAZolin 2 GM/D5W50ml 50 ML IV ONE (09:47)
[2024-01-30 10:46] VITALS: BP 143/68; PULSE 64; RESP 18; O2SAT 95
== END | disposition home or self-care (01) ==
LOC: CHF HDHVI 09:28
PROVIDERS: ATTEND Internal Medicine Cardiovascular Disease
DX: T81.49XA Infection following a procedure, other surgical site, initial encounter (principal); I10 Essential (primary) hypertension; R06.02 Shortness of breath
CPT/HCPCS: 96365; G0463; J0690

== ENCOUNTER → 2024-03-19 | Outpatient (CLI) | payer MEDICARE, OTHER ==
[~2024-03-19] VITALS: Ht 167.6 cm; Wt 83.0 kg
[~2024-03-19] MED LIST changes: +ADENOSINE 70 MG in GIVE UN-DILUTED 0 ML IV ONE; +ADENOSINE 90 MG/30 ML INJ IV ONE
== END | disposition home or self-care (01) ==
LOC: Rad HDHVI 13:58
PROVIDERS: ATTEND Internal Medicine Cardiovascular Disease
DX: Z13.6 Encounter for screening for cardiovascular disorders (principal); I49.3 Ventricular premature depolarization; I47.19 Other supraventricular tachycardia; I11.0 Hypertensive heart disease with heart failure; I50.33 Acute on chronic diastolic (congestive) heart failure; E11.40 Type 2 diabetes mellitus with diabetic neuropathy, unspecified; J44.9 Chronic obstructive pulmonary disease, unspecified; I73.9 Peripheral vascular disease, unspecified; E78.00 Pure hypercholesterolemia, unspecified; R06.02 Shortness of breath; Z82.49 Family history of ischemic heart disease and other diseases of the circulatory system
CPT/HCPCS: 78452; 93005; 96374; 96375; A9500; J0153

== ENCOUNTER → 2024-05-22 | Outpatient (CLI) | payer MEDICARE, OTHER ==
[~2024-05-22] MED LIST changes: -ADENOSINE 70 MG in GIVE UN-DILUTED 0 ML IV ONE; -ADENOSINE 90 MG/30 ML INJ IV ONE
--- NOTE | 2024-05-22 19:48 | DVH ---
Procedure: [facility] BONE 3 PHASE Exam Date: 05/22/2024 07:22 AM Clinical History: PAINFUL HARDWARE Comparison Study: None Nuclear Medicine Three-Phase Bone Scan Technique: Following the intravenous administration of 25.5 millicuries of technetium 99m MDP dynamic blood flow images and static and blood pool images were obtained. Delayed planar images were obtained at 3 foster rs. Findings: Photopenic area in the proximal left femur consistent with a prosthesis. Impression: 1. Symmetrical uptake bilaterally
== END | disposition home or self-care (01) ==
LOC: XYW 07:12
PROVIDERS: ATTEND Orthopaedic Surgery Adult Reconstructive Orthopaedic Surgery
DX: T84.84XA Pain due to internal orthopedic prosthetic devices, implants and grafts, initial encounter (principal); Y79.2 Prosthetic and other implants, materials and accessory orthopedic devices associated with adverse incidents
CPT/HCPCS: 78315; A9503

== ENCOUNTER → 2024-06-01 | Outpatient (CLI) | payer MEDICARE, OTHER ==
[2024-06-01 12:00] VITALS: BP 128/66; PULSE 84; RESP 20; O2SAT 97
[2024-06-01] MEDS: TRIAMCINOLONE 40MG/ML 1ML VIAL IM ONE (12:04)
[2024-06-01 12:32] VITALS: BP 138/60; PULSE 83; RESP 20; O2SAT 97
[2024-06-01] MEDS: TRIAMCINOLONE 40MG/ML 1ML VIAL ONE (12:32)
== END | disposition home or self-care (01) ==
LOC: CHF HDHVI 11:58
PROVIDERS: ATTEND Internal Medicine Cardiovascular Disease
DX: J01.90 Acute sinusitis, unspecified (principal); I11.0 Hypertensive heart disease with heart failure; I50.33 Acute on chronic diastolic (congestive) heart failure; I25.10 Atherosclerotic heart disease of native coronary artery without angina pectoris; I73.9 Peripheral vascular disease, unspecified; J44.9 Chronic obstructive pulmonary disease, unspecified; M19.90 Unspecified osteoarthritis, unspecified site; G47.30 Sleep apnea, unspecified; E11.40 Type 2 diabetes mellitus with diabetic neuropathy, unspecified; E78.00 Pure hypercholesterolemia, unspecified; L98.8 Other specified disorders of the skin and subcutaneous tissue; Z79.899 Other long term (current) drug therapy; Z88.8 Allergy status to other drugs, medicaments and biological substances; Z87.891 Personal history of nicotine dependence; Z88.5 Allergy status to narcotic agent; Z79.01 Long term (current) use of anticoagulants; Z96.643 Presence of artificial hip joint, bilateral; Z90.10 Acquired absence of unspecified breast and nipple
CPT/HCPCS: 96372; G0463; J3301

== ENCOUNTER 2025-01-14 06:12 | Inpatient (IN) | payer MEDICARE, OTHER ==
[~2025-01-14] VITALS: Ht 167.6 cm; Wt 89.7 kg
[~2025-01-14 06:12] MED LIST changes: -ACE650RS PO; +ASPI81CH59 PO; -ATOR20TA PO; +CYAN-17 PO; -DICL50TA4 PO; -FAMO-68 PO; +FAMO20TA10 PO; -FURO20TA3 PO; -HYDR-4902 PO; -LANS30CA57 PO; -LETR2.5T PO; +MECL12.586 PO; +METF-370 PO; -NIFE1TAB30 PO; -POTA-220 PO; -SUMA50TA2 PO; +ZOFR4T PO
[2025-01-14] MEDS ORDERED: NITROGLYCERIN 0.4 MG SL TAB SL PRN (07:00)
[2025-01-14] MEDS ORDERED: OXYCODONE W/ ACETAMINOPHEN 5/325MG TABLET PO PRN (07:00)
[2025-01-14] MEDS ORDERED: CELECOXIB 100 MG CAP PO ONE (07:00)
[2025-01-14] MEDS ORDERED: ACETAMINOPHEN IV 1000 MG/100ML (10MG/ML) IV ONE (07:00)
[2025-01-14] MEDS ORDERED: PREGABALIN CAPSULE 75 MG CAP PO ONE (07:00)
[2025-01-14] MEDS ORDERED: HYDROmorphone HCL 2 MG/ML VL/or syr IV PRN ×2 (07:00→10:00)
[2025-01-14] MEDS ORDERED: MORPHINE SULFATE INJ 2 MG/ml SYRG IV PRN (07:00)
[2025-01-14] MEDS ORDERED: CYCLOBENZAPRINE HCL 10 MG TAB PO PRN (07:00)
[2025-01-14] MEDS: ACETAMINOPHEN IV 1000 MG/100ML (10MG/ML) IV ONE (07:25)
[2025-01-14] MEDS: CELECOXIB 100 MG CAP PO ONE (07:25)
[2025-01-14] MEDS: GABAPENTIN 300 MG CAP PO ONE (07:25)
[2025-01-14] MEDS ORDERED: LIDOCAINE 1% INJ PF 5ML AMP ONE (07:28)
[2025-01-14] MEDS ORDERED: ONDANSETRON HCL 4 MG/2 ML VIAL ONE (07:28)
[2025-01-14] MEDS ORDERED: GLYCOPYRROLATE 0.2 MG/ML 1ML VIAL ONE (07:29)
[2025-01-14] MEDS ORDERED: PROPOFOL 10 MG/ML 20 ML IV ONE ×3 (07:29→09:33)
[2025-01-14] MEDS ORDERED: KETAMINE 50mg/ML 1ml syringe ONE (07:29)
[2025-01-14] MEDS ORDERED: BUPIVACAINE/DEXTROSE MPF 0.75% 2 ML AMP IT ONE (09:02)
--- NOTE | 2025-01-14 09:13 | DVHOP2 ---
Operative Report - 2 Report Details Date: 01/14/25 Preop Diagnosis: Failed Left Total Hip Postop Diagnosis: same Surgeon: Jarrod Ramos MD Fuselage Framer: David CORNEJO Anesthesiologist: See Record Anesthesia: General Implant: llanos and nephew Consent: The patient was informed of the risks and benefits of the procedure. These include but are not limited to complications of anesthesia, postoperative infection, incomplete relief of symptoms, recurrence of symptoms, damage to blood vessels, nerves and tendons, deep venous thrombosis, pulmonary embolism and possible need for repeat surgery in the future. Estimated Blood Loss: 500ml Name of Procedure Performed Revision Acetabular component, conversion to dual mobility total hip, release of iliopsoas tendon Procedure Details Procedure Details: The patient was positioned in the lateral decubitus position with appropriate padding to the axilla, pelvis, and lower extremities. The nonoperative leg was fitted with a compression stocking and sequential compression device. The operative site was prepped and draped in the standard sterile fashion. The orthopedic team utilized body exhaust suits. A posterior approach was utilized. A skin incision was made posterior to the greater trochanter. Dissection was carried through subcutaneous tissue, and the fascia of the gluteus joel was split in line with its fibers. The short external rotators were identified and released, and the hip was dislocated posteriorly. Extensive lysis of adhesions was performed to facilitate exposure. The iliopsoas tendon was released to improve mobility and reduce impingement risk. Attention was directed to the acetabular component, which was found to be grossly loose. The component was removed using the explant system without any associated bone loss. Multiple intraoperative cultures were obtained per protocol. The acetabulum was sequentially reamed in 1 mm increments up to 57 mm., while there was posterior superior uncoverage, there was excellent pressfit between posterior inferior and anterior superior columns. A 58 mm multihole press-fit cup was then implanted and further secured with four screws: the first two were non-locking, and the final two were locking screws to optimize fixation. A dual mobility liner was inserted, and a +4 mm head was used to enhance stability. The hip was reduced and stability was confirmed through a full range of motion. The wound was irrigated with pulsatile lavage and a dilute betadine solution. Local anesthetic cocktail was injected into the soft tissues. The capsule and short external rotators were repaired with #5 FiberWire. The fascia was closed with #1 absorbable suture, and the subcutaneous tissue with 2-0 absorbable suture. Skin was closed with joshua. A sterile dressing was applied, and an abduction pillow was placed. The patient was transferred to the recovery room in stable condition. Condition Fair Disposition Transfer to PACU and then to the floor JARROD RAMOS DO Jan 14, 2025 09:13
[2025-01-14] MEDS: MORPHINE SULF PF 5 MG/10 ML VIAL ONE (09:19)
[2025-01-14] MEDS: KETOROLAC TROMETH 30 MG/ML 1ML VIAL ONE ×2 (09:19→11:00)
[2025-01-14] MEDS: BUPIVACAINE 0.25% INJ 50ML VIAL ONE ×2 (09:19→10:59)
[2025-01-14] MEDS: VANCOMYCIN HCL 1000 MG VL ONE (09:20)
[2025-01-14 09:51] VITALS: PULSE 87; RESP 12; O2SAT 99
[2025-01-14] MEDS ORDERED: fentaNYL CITRATE 100 MCG/2 ML VL IV PRN (10:00)
[2025-01-14] MEDS ORDERED: FAMOTIDINE 20 MG TAB PO SCH (10:00)
[2025-01-14] MEDS ORDERED: hydrALAZINE HCL 20 MG/ML VL IV PRN (10:00)
[2025-01-14] MEDS ORDERED: FLUMAZENIL 0.1 MG/ML INJ 10ML MDV IV PRN (10:00)
[2025-01-14] MEDS ORDERED: NALOXONE HCL 0.4 MG/ML VIAL IV PRN (10:00)
[2025-01-14] MEDS ORDERED: ONDANSETRON HCL 4 MG/2 ML VIAL IV PRN (10:00)
[2025-01-14] MEDS: GABAPENTIN 300 MG CAP PO SCH (10:00)
[2025-01-14] MEDS ORDERED: MULTIPLE VITAMINS W/ MINERALS TAB PO SCH (10:00)
--- NOTE | 2025-01-14 10:30 | DVH ---
CLINICAL INDICATION: sp Left DANIELA TECHNIQUE: 1 radiographic views of the pelvis AP were obtained. Comparison: XY PELVIS AP on DOS: 07/19/22 FINDINGS/IMPRESSION: Pedicle screws and rods in place at L5-S1. Bilateral total hip prostheses in place. No acute fractures.
[2025-01-14] MEDS: ACETAMINOPHEN IV 100 ML IV ONE (10:58)
[2025-01-14] MEDS: ceFAZolin 2 GM/D5W50ml 50 ML IV ONE (10:58)
[2025-01-14] MEDS: CEFEPIME 1GM/50ML 50 ML IV ONE (10:59)
[2025-01-14] MEDS: TRANEXAMIC ACID 20 ML ONE (10:59)
[2025-01-14] MEDS: BUPIVACAINE HCL 50 ML ONE (11:00)
[2025-01-14] MEDS ORDERED: DEXTROSE (50%) 50ML SYRG IV PRN (11:00)
[2025-01-14] MEDS: ACCU-CHEK COMFORT CURVE STRIP VI SCH (12:59)
[2025-01-14] MEDS: InsuLIN REG 1unit/0.01ml Soln (100units/ml) SC SCH ×2 (13:08→22:00)
--- NOTE | 2025-01-14 13:08 | DVHPN2 ---
Progress Note - Dictate Date Seen: Jan 14, 2025 Medical Necessity Reason Pt with a Central, PICC or Fol: No Subjective PT WITH TOTAL LEFT HIP ARTHROPLASTY [id number] COMPLICATED BY RECURRENT EFFUSION PAIN EROSION AND POSSIBLE SEPTIC JOINT MULTIPLE INTERVENTION WITHOUT RESOLUTION NOW FAILED LEFT HIP PROSTHESIS S/P TOTAL REVISION / REPLACEMENT SEPTIC LEFT HIP PROSTHETIC JOINT vital signs Vital Sign Date Time Temp Pulse Resp B/P (MAP) Pulse Ox O2 Delivery O2 Flow Rate FiO2 01/14/25 11:36 58 12 145/71 (95) 99 01/14/25 09:51 Room Air 2.0 99 01/14/25 09:51 97.0 97.0 Total Intake and Output 01/13/25 01/13/25 01/14/25 15:00 23:00 07:00 Intake Total 200 ml Balance 200 ml medications Current Medications Medications Dose Ordered Sig/Kym Route Start Time Stop Time Status Last Admin Dose Admin Cyclobenzaprine HCl 10 mg Q8HP PRN PO 01/14/25 07:00 Famotidine 40 mg BID PO 01/14/25 10:00 UNV Gabapentin 300 mg DAILY PO 01/14/25 10:00 Patient Own Medication 1 cap BID PO 01/14/25 10:00 UNV Patient Own Medication 4 mg BID PO 01/14/25 10:00 Lactated Ringer's 1,000 ml @ 100 mls/hr Q10H IV 01/14/25 07:00 Cefazolin Sodium 50 ml @ 50 mls/hr Q6H IV 01/14/25 07:00 01/15/25 13:59 Acetaminophen 650 mg Q6HP PRN PO 01/14/25 07:00 Oxycodone/ Acetaminophen 1 tab Q4HP PRN PO 01/14/25 07:00 Hydromorphone HCl 1 mg Q2HP PRN IV 01/14/25 07:00 Docusate Sodium 100 mg Q12HR PO 01/14/25 10:00 Enoxaparin Sodium 40 mg DAILY SC 01/15/25 10:00 Nitroglycerin 0.4 mg Q5MINP PRN SL 01/14/25 07:00 Morphine Sulfate 2 mg Q30M PRN IV 01/14/25 07:00 Famotidine 20 mg DAILY PO 01/14/25 10:00 Multivitamins/ Minerals 1 tab BID PO 01/14/25 10:00 Cefepime HCl 50 ml @ 12.5 mls/hr DAILY IV 01/14/25 10:00 Oxycodone HCl 10 mg ONCE PRN PO 01/14/25 10:00 Diagnostic Test (Pha) 1 strip ACHS 01/14/25 11:30 01/14/25 12:59 1 STRIP Insulin Human Regular HS SC 01/14/25 22:00 Insulin Human Regular AC SC 01/14/25 11:30 Dextrose 50 ml UD PRN IV 01/14/25 11:00 objective oft tissue swelling, surrounding the hip, could reflect secondary evidence for an underlying infective process such as septic arthritis. The left hip prosthesis is not fractured. The bone adjacent to the prosthesis is not fractured. Prosthetic Loosening, or particle disease, are better evaluated on MRI. TRIPLE PHASE BONE SCAN WAS NEGATIVE VITAL SIGNS: Blood pressure is 134/80, pulse of 70, O2 saturation 98% on room air. HEENT: Pupils are reactive. Funduscopic exam is benign. Sclerae anicteric. No AV nicking. No papilledema noted. Extraocular muscles are intact. Tympanic membranes are within normal limits. Nasal passages are patent. No sinus tenderness elicited. Oral mucosa moist. Posterior pharynx without any exudate. NECK: Supple. Carotid pulses are 2+ symmetrical. Normal upstroke and contour. No JVD appreciated. No supraclavicular adenopathy. No cervical adenopathy. No axillary adenopathy. PULMONARY: Clear to auscultation in all lung kerr. Tympanic to percussion. Negative for rhonchi. Negative for wheezing. Negative for egophony. CARDIOVASCULAR: Regular rate without S3, without S4. PMI is not displaced. No murmurs, no clicks, no rubs. No parasternal lift. ABDOMEN: Soft, nontender, normal bowel sounds. Stool guaiac is negative. Negative for any epigastric discomfort. No suprapubic discomfort. No CVA discomfort. Liver approximately 5 cm in span. Spleen tip nonpalpable. EXTREMITIES: No edema noted except for the left hip, but there is erythema and tenderness to palpation. NEUROLOGIC: DTRs are 2+ symmetrical. Cranial nerves 2-12 within normal limits. Problem List TOTAL LEFT HIP ARTHROPLASTY [id number] COMPLICATED BY RECURRENT EFFUSION PAIN EROSION AND POSSIBLE SEPTIC JOINT MULTIPLE INTERVENTION WITHOUT RESOLUTION NOW FAILED LEFT HIP PROSTHESIS S/P TOTAL REVISION / REPLACEMENT SEPTIC LEFT HIP PROSTHETIC JOINT Assessment/Plan H/H ABX PT Plan discussed with: Patient Critical Care Time(min): 35 KARISSA HUBBARD MD Jan 14, 2025 13:08
[2025-01-14 13:16] VITALS: PULSE 63; RESP 11; O2SAT 98
[2025-01-14 13:47] LABS: Hematocrit 39.6 % (36.0-46.0); Hemoglobin 12.8 g/dL (12.2-16.2); Mean Corpuscular Hemoglobin 30.4 pg (28.0-32.0); Mean Corpuscular Volume 94.1 fL (80.0-100.0); Nucleated Red Blood Cells % 0.1 %
[2025-01-14 13:59] LABS: INR 1.02 (0.9-1.15); Partial Thromboplastin Time 29.3 SEC (24.5-34.5); Prothrombin Time 10.8 sec (9.3-11.8)
[2025-01-14 14:05] LABS: Alanine Aminotransferase 24 U/L (7-40); Albumin 4.0 g/dL (3.2-4.8); Alkaline Phosphatase 83 U/L (46-116); Anion Gap 10 (5-15); BUN/Creatinine Ratio 13.8 (10.0-20.0); Blood Urea Nitrogen 11 mg/dL (9-23); Calcium 8.8 mg/dL (8.7-10.4); Carbon Dioxide 26 mmol/L (20-31); Chloride 99 mmol/L (98-107); Potassium 4.2 mmol/L (3.5-5.1); Total Protein 6.2 g/dL (5.7-8.2)
[2025-01-14 14:07] LABS: Bilirubin, Total 0.3 mg/dL (0.2-1.0); Glucose 261 mg/dL (74-106); Sodium 135 mmol/L (136-145)
[2025-01-14] MEDS: ACETAMINOPHEN 325 MG TAB PO PRN (14:23)
[2025-01-14] MEDS: LACTATED RINGER'S 1,000 ML IV SCH (15:34)
[2025-01-14] MEDS: ceFAZolin 1GM/50ML 50 ML IV SCH ×2 (15:34→16:03)
[2025-01-14] MEDS: CEFEPIME 1GM/50ML 50 ML IV SCH (15:35)
[2025-01-14] MEDS: DOCUSATE SOD 100 MG CAP PO SCH (15:35)
[2025-01-14] MEDS: MULTIPLE VITAMINS W/ MINERALS TAB PO SCH (15:36)
[2025-01-14] MEDS: FAMOTIDINE 20 MG TAB PO SCH (15:36)
[2025-01-14 17:05] VITALS: BP 149/86; PULSE 63; RESP 16; TEMP 97.6; O2SAT 99
[2025-01-14 18:42] VITALS: BP 149/86; PULSE 63; RESP 16; TEMP 97.6; O2SAT 96; O2SAT 99
[2025-01-14 20:00] VITALS: PULSE 59; RESP 16; O2SAT 98
[2025-01-14 21:00] VITALS: BP 151/75; PULSE 59; RESP 16; TEMP 98; O2SAT 98
[2025-01-15] VITALS (7 sets, daily range): BP systolic 147–166; BP diastolic 73–89; PULSE 54–66; RESP 16–18; TEMP 97.9–98.2; O2SAT 92–98
[2025-01-15 05:18] LABS: Hematocrit 35.6 % (36.0-46.0); Hemoglobin 12.0 g/dL (12.2-16.2)
[2025-01-15 05:42] LABS: Alanine Aminotransferase 21 U/L (7-40); Albumin 3.7 g/dL (3.2-4.8); Alkaline Phosphatase 75 U/L (46-116); Anion Gap 10 (5-15); BUN/Creatinine Ratio 24.7 (10.0-20.0); Blood Urea Nitrogen 19 mg/dL (9-23); Carbon Dioxide 27 mmol/L (20-31); Potassium 4.1 mmol/L (3.5-5.1); Total Protein 5.8 g/dL (5.7-8.2)
[2025-01-15 05:43] LABS: Bilirubin, Total 0.3 mg/dL (0.2-1.0); Calcium 8.5 mg/dL (8.7-10.4); Chloride 98 mmol/L (98-107); Glucose 141 mg/dL (74-106); Sodium 135 mmol/L (136-145)
--- NOTE | 2025-01-15 08:10 | DVHPN2 ---
Progress Note Date Seen: Jan 15, 2025 Medical Necessity Reason Pt with a Central, PICC or Fol: Yes The following are medically ne: Shelton Catheter Subjective Patient reports: No new complaints Objective vital signs Vital Sign Date Time Temp Pulse Resp B/P (MAP) Pulse Ox O2 Delivery O2 Flow Rate FiO2 01/15/25 05:00 98.2 54 16 152/74 (100) 97 98.2 01/14/25 20:00 Nasal Cannula* 2 28 Total Intake and Output 01/14/25 01/14/25 01/15/25 15:00 23:00 07:00 Intake Total 200 ml 550 ml Output Total 1000 ml 150 ml 700 ml Balance -1000 ml 50 ml -150 ml medications Current Medications Medications Dose Ordered Sig/Kym Route Start Time Stop Time Status Last Admin Dose Admin Cyclobenzaprine HCl 10 mg Q8HP PRN PO 01/14/25 07:00 Famotidine 40 mg BID PO 01/14/25 10:00 UNV Gabapentin 300 mg DAILY PO 01/14/25 10:00 Patient Own Medication 1 cap BID PO 01/14/25 10:00 UNV Patient Own Medication 4 mg BID PO 01/14/25 10:00 Lactated Ringer's 1,000 ml @ 100 mls/hr Q10H IV 01/14/25 07:00 Acetaminophen 650 mg Q6HP PRN PO 01/14/25 07:00 01/14/25 14:23 650 MG Oxycodone/ Acetaminophen 1 tab Q4HP PRN PO 01/14/25 07:00 Hydromorphone HCl 1 mg Q2HP PRN IV 01/14/25 07:00 Docusate Sodium 100 mg Q12HR PO 01/14/25 10:00 01/14/25 23:48 100 MG Enoxaparin Sodium 40 mg DAILY SC 01/15/25 10:00 Nitroglycerin 0.4 mg Q5MINP PRN SL 01/14/25 07:00 Morphine Sulfate 2 mg Q30M PRN IV 01/14/25 07:00 Famotidine 20 mg DAILY PO 01/14/25 10:00 Multivitamins/ Minerals 1 tab BID PO 01/14/25 10:00 01/14/25 23:49 1 TAB Cefepime HCl 50 ml @ 12.5 mls/hr DAILY IV 01/14/25 10:00 Oxycodone HCl 10 mg ONCE PRN PO 01/14/25 10:00 Diagnostic Test (Pha) 1 strip ACHS 01/14/25 11:30 01/15/25 06:46 1 STRIP Insulin Human Regular HS SC 01/14/25 22:00 01/14/25 22:00 6 UNITS Insulin Human Regular AC SC 01/14/25 11:30 01/15/25 06:47 2 UNITS Dextrose 50 ml UD PRN IV 01/14/25 11:00 Examination: GENERAL:Normal, MSK:Abnormal laboratory and microbiology Laboratory Tests 01/15/25 04:55 01/14/25 13:23 Test 01/15/25 04:55 Range/Units Serum Glucose 141 H 74-106 mg/dL Problem List/Assessment/Plan Problem List/Assessment/Plan 74 year old female who is s/p Revision left DANIELA POD 1 1. Pain control 2. DVT ppx 3 physical therapy 4. abduction pillow at night when sleeping 5. physical therapy 6. d/c shelton cath 7. plan for d/c home tomorrow Plan discussed with: Patient Date of Service: Jan 15, 2025 Billing Provider: JAIME ANDREW MD Common Visit Codes: NOT BILLABLE CHARLY BAIG NP Jan 15, 2025 08:10
[2025-01-15] MEDS: ENOXAPARIN SOD 40 MG/0.4 ML SYRINGE SC SCH (10:36)
[2025-01-15] MEDS ORDERED: HYDROmorphone HCL 2 MG/ML VL/or syr IV PRN (12:30)
[2025-01-15] MEDS ORDERED: hydrALAZINE HCL 20 MG/ML VL IV PRN (12:30)
--- NOTE | 2025-01-15 12:31 | DVHINCON2 ---
Date Seen: Jan 15, [address] Griffin Family History: Alzheimer's disease G8 MOTHER G8 SISTER Cerebrovascular accident (CVA) G8 BROTHER FH: cancer FH: myocardial infarction Allergies: Coded Allergies: Metoclopramide (Verified Allergy, Unknown, 10/02/21) Pantoprazole (Verified Allergy, Unknown, 10/02/21) Quinapril (Verified Allergy, Unknown, 10/02/21) Hydrocodone (Verified Adverse Reaction, Mild, N/V, 05/15/21) Home Meds Reported Medications Cyanocobalamin (B12) 1,000 Mcg Cap, 1000 MCG PO, CAP 01/09/25 Famotidine (PEPCID TABLET) 20 Mg Tb, 40 MG PO BID, TAB 01/09/25 Metformin Hydrochloride (Metformin Hcl) 500 Mg Tab, 500 MG PO, TAB 01/09/25 Ondansetron Odt 4MG Tab (ZOFRAN PO) 4 Mg Tb, 4 MG PO, TAB ODT TAB-DISSOLVE IN MOUTH, THEN SWALLOW 01/09/25 Meclizine Hcl (Meclizine Hcl) 12.5 Mg Tab, 25 MG PO, TAB 01/09/25 Aspirin (Aspirin Low Dose) 81 Mg Chw, 81 MG PO DAILY, TAB.CHEW 01/09/25 Cyclobenzaprine Hcl (Cyclobenzaprine Hcl) 10 Mg Tab, 10 MG PO Q8HP PRN for FOR MUSCLE SPASM 11/25/21 Diclofenac W/ Misoprostol (Arthrotec 75) Tab, 1 OR, TAB 10/02/21 Multiple Vitamins W/ Minerals (Targovax [facility]) 1 Cap Cap, 1 CAP PO BID, CAP 10/02/21 Gabapentin (Gabapentin) 300 Mg Cap, 300 MG PO DAILY, CAP 05/15/21 Carisoprodol (Soma) 350 Mg Tab, 350 MG PO BIDPRN PRN for FOR MUSCLE SPASM, TAB 05/15/21 Tolterodine Tartrate (Detrol La) 2 Mg Cap, 4 MG PO BID, #2 CAP 05/15/21 Diclofenac Sodium (Diclofenac Sodium Dr) 75 Mg Tab, MG PO DAILY, TAB 05/15/21 Magnesium Oxide (MAGNESIUM OXIDE) 400 Mg Tab, 400 MG PO, #2 TAB 05/15/21 Discontinued Reported Medications Furosemide (Furosemide) 20 Mg Tab, 20 MG PO DAILY 11/25/21 Potassium Chloride (Klor-Con M20) 20 Meq Tab, 20 MEQ PO DAILY, TAB 11/25/21 Sumatriptan Succinate (Imitrex) 50 Mg Tab, 2 TAB PO PRN, #9 TAB 1 Refill 10/02/21 Acetaminophen (Tylenol) 650 Mg Rc, 650 MG PO Q6HPRN 05/15/21 Famotidine (Gnp Acid Field Gauger Maximum) 20 Mg Tab, 40 MG PO BID, TAB 05/15/21 Diclofenac Sodium (Diclofenac Sodium Ec) 50 Mg Tab, 25 MG PO, TAB 05/15/21 Letrozole (Femara) 2.5 Mg Tab, 2.5 MG PO, TAB 05/15/21 Atorvastatin Calcium (Lipitor) 20 Mg Tab, 20 MG PO DAILY, TAB 05/15/21 Nifedipine (Nifedipine Er) 60 Mg Tab, 60 MG PO DAILY, TAB 05/15/21 Lansoprazole (Lansoprazole) 30 Mg Cap, 30 MG PO, CAP 05/15/21 Current Medications Current Medications Medications (Trade) Dose Ordered Sig/Kym Route PRN Reason Start Time Stop Time Status Last Admin Enoxaparin Sodium (Lovenox) 40 mg DAILY SC 01/15/25 10:00 01/15/25 10:36 Insulin Human Regular (InsuLIN R) HS SC 01/14/25 22:00 01/14/25 22:00 Cefazolin Sodium 50 ml @ 50 mls/hr Q6H IV 01/14/25 16:00 01/15/25 04:59 DC 01/15/25 04:46 Vital Signs Vital Signs Date Time Temp Pulse Resp B/P (MAP) Pulse Ox O2 Delivery O2 Flow Rate FiO2 01/15/25 09:00 98.2 55 17 164/73 (103) 98 98.2 01/15/25 07:40 Nasal Cannula* 2 28 Labs/Diagnostic Data Labs Test 01/15/25 11:35 01/15/25 04:55 01/14/25 13:23 Range/Units POC Glucose 150 H 70-106 mg/dl Hemoglobin 12.0 L 12.2-16.2 g/dL Hematocrit 35.6 #L 36.0-46.0 % Sodium Level 135 L 136-145 mmol/L Potassium Level 4.1 3.5-5.1 mmol/L Chloride Level 98 98-107 mmol/L Carbon Dioxide Level 27 20-31 mmol/L Anion Gap 10 5-15 Blood Urea Nitrogen 19 9-23 mg/dL Creatinine 0.77 0.550-1.02 mg/dL Glomerular Filtration Rate Calc 80 >90 mL/min BUN/Creatinine Ratio 24.7 H 10.0-20.0 Serum Glucose 141 H 74-106 mg/dL Calcium Level 8.5 L 8.7-10.4 mg/dL Total Bilirubin 0.3 0.2-1.0 mg/dL Aspartate Amino Transferase (AST) 19 13-40 U/L Alanine Aminotransferase (ALT) 21 7-40 U/L Alkaline Phosphatase 75 46-116 U/L Total Protein 5.8 5.7-8.2 g/dL Albumin 3.7 3.2-4.8 g/dL White Blood Count 19.7 H 4.4-10.8 10^3/uL Red Blood Count 4.21 4.0-5.20 10^6/uL Mean Corpuscular Volume 94.1 80.0-100.0 fL Mean Corpuscular Hemoglobin 30.4 28.0-32.0 pg Mean Corpuscular Hemoglobin Concent 32.4 32.0-36.0 g/dL Red Cell Distribution Width 14.1 11.8-14.3 % Platelet Count 244 140-450 10^3/uL Mean Platelet Volume 9.0 6.9-10.8 fL Neutrophils (%) (Auto) 95.7 H 37.0-80.0 % Lymphocytes (%) (Auto) 2.1 L 10.0-50.0 % Monocytes (%) (Auto) 2.2 0.0-12.0 % Eosinophils (%) (Auto) 0.0 0.0-7.0 % Basophils (%) (Auto) 0.0 0.0-2.0 % Neutrophils # (Auto) 18.9 H 1.6-8.6 10 ^3/uL Lymphocytes # (Auto) 0.4 0.4-5.4 10 ^3/uL Monocytes # (Auto) 0.4 0-1.3 10 ^3/uL Eosinophils # (Auto) 0 0-0.8 10 ^3/uL Basophils # (Auto) 0 0-0.2 10 ^3/uL Nucleated Red Blood Cells 0.1 % Prothrombin Time 10.8 9.3-11.8 sec Prothrombin Time INR 1.02 0.9-1.15 Activated Partial Thromboplast Time 29.3 24.5-34.5 SEC Assessment see dictated note Plan discussed with: Patient Date of Service: Jan 15, 2025 Billing Provider: DONI CROOK MD Common Visit Codes: [id number] INP/OBS CARE (HIGH) Secondary Visit Codes: [id number] CARE PLAN 30 MINUTES MARK CROOK MD Jan 15, 2025 12:31
--- NOTE | 2025-01-15 13:23 | DVHINCON2 ---
DATE OF CONSULTATION: 01/15/2025 INTERNAL MEDICINE CONSULT HISTORY OF PRESENT ILLNESS: The patient is a 74-year-old lady who is admitted after she underwent surgery on the left hip for a failed previous surgery. The patient denies any significant pain. No chest pain, no shortness of breath, no nausea or vomiting. REVIEW OF SYSTEMS: Review of rest of the systems otherwise currently negative. PAST MEDICAL HISTORY: Significant for diabetes mellitus, hypertension, previous right hip surgery, hyperlipidemia. MEDICATIONS: Include aspirin, diclofenac, gabapentin, metformin, Detrol. ALLERGIES: HYDROCODONE, REGLAN, PANTOPRAZOLE, AND QUINAPRIL. SOCIAL HISTORY: Denies smoking or alcohol. Lives with son and [id number]. FAMILY HISTORY: Negative. PHYSICAL EXAMINATION: GENERAL: The patient is awake and alert. VITAL SIGNS: Temperature of 98.2, pulse 55 per minute, blood pressure 164/73. SHEENT: Unremarkable. NECK: There is no JVD. No pedal edema. LUNGS: Equal bilaterally. No added sounds. CARDIOVASCULAR: S1 and S2 is regular without murmurs. ABDOMEN: Soft. There is no organomegaly. NEUROLOGIC: Nonfocal. MUSCULOSKELETAL: There is a dressing at the site of left hip surgery. ASSESSMENT AND PLAN: * Diabetes mellitus, for which she will be placed on sliding scale insulin. * Hypertension for which she will be placed on p.r.n. hydralazine. * Hyperlipidemia. * Obesity. * Status post left hip surgery for which she will be placed on pain medication and receive physical therapy. ADVANCED CARE PLANNING: The patient is a full code-Time spent was 18 minutes. MD ANA Lindsey/EKT/JASMIN TID: [id number] RECEIPT: [id number] [facility]ALTH[facility]
--- NOTE | 2025-01-15 16:14 | DVHPN2 ---
Progress Note - Dictate Date Seen: Jan 15, 2025 Medical Necessity Reason Pt with a Central, PICC or Fol: Yes The following are medically ne: Pepper Catheter Subjective PT WITH TOTAL LEFT HIP ARTHROPLASTY [id number] COMPLICATED BY RECURRENT EFFUSION PAIN EROSION AND POSSIBLE SEPTIC JOINT MULTIPLE INTERVENTION WITHOUT RESOLUTION NOW FAILED LEFT HIP PROSTHESIS S/P TOTAL REVISION / REPLACEMENT SEPTIC LEFT HIP PROSTHETIC JOINT vital signs Vital Sign Date Time Temp Pulse Resp B/P (MAP) Pulse Ox O2 Delivery O2 Flow Rate FiO2 01/15/25 12:34 98.2 64 17 166/89 (114) 92 98.2 01/15/25 07:40 Nasal Cannula* 2 28 Total Intake and Output 01/14/25 01/14/25 01/15/25 15:00 23:00 07:00 Intake Total 200 ml 550 ml Output Total 1000 ml 150 ml 700 ml Balance -1000 ml 50 ml -150 ml medications Current Medications Medications Dose Ordered Sig/Kym Route Start Time Stop Time Status Last Admin Dose Admin Cyclobenzaprine HCl 10 mg Q8HP PRN PO 01/14/25 07:00 Famotidine 40 mg BID PO 01/14/25 10:00 UNV Gabapentin 300 mg DAILY PO 01/14/25 10:00 01/15/25 10:36 300 MG Patient Own Medication 1 cap BID PO 01/14/25 10:00 UNV Patient Own Medication 4 mg BID PO 01/14/25 10:00 01/15/25 10:36 4 MG Acetaminophen 650 mg Q6HP PRN PO 01/14/25 07:00 01/14/25 14:23 650 MG Oxycodone/ Acetaminophen 1 tab Q4HP PRN PO 01/14/25 07:00 Docusate Sodium 100 mg Q12HR PO 01/14/25 10:00 01/15/25 10:36 100 MG Enoxaparin Sodium 40 mg DAILY SC 01/15/25 10:00 01/15/25 10:36 40 MG Nitroglycerin 0.4 mg Q5MINP PRN SL 01/14/25 07:00 Morphine Sulfate 2 mg Q30M PRN IV 01/14/25 07:00 Famotidine 20 mg DAILY PO 01/14/25 10:00 01/15/25 10:36 20 MG Multivitamins/ Minerals 1 tab BID PO 01/14/25 10:00 01/15/25 10:36 1 TAB Cefepime HCl 50 ml @ 12.5 mls/hr DAILY IV 01/14/25 10:00 01/15/25 10:35 12.5 MLS/HR Oxycodone HCl 10 mg ONCE PRN PO 01/14/25 10:00 Diagnostic Test (Pha) 1 strip ACHS 01/14/25 11:30 01/15/25 11:38 1 STRIP Insulin Human Regular HS SC 01/14/25 22:00 01/14/25 22:00 6 UNITS Insulin Human Regular AC SC 01/14/25 11:30 01/15/25 12:08 2 UNITS Dextrose 50 ml UD PRN IV 01/14/25 11:00 Hydromorphone HCl 1 mg Q3HP PRN IV 01/15/25 12:30 Hydralazine HCl 10 mg Q6HP PRN IV 01/15/25 12:30 objective oft tissue swelling, surrounding the hip, could reflect secondary evidence for an underlying infective process such as septic arthritis. The left hip prosthesis is not fractured. The bone adjacent to the prosthesis is not fractured. Prosthetic Loosening, or particle disease, are better evaluated on MRI. TRIPLE PHASE BONE SCAN WAS NEGATIVE VITAL SIGNS: Blood pressure is 134/80, pulse of 70, O2 saturation 98% on room air. HEENT: Pupils are reactive. Funduscopic exam is benign. Sclerae anicteric. No AV nicking. No papilledema noted. Extraocular muscles are intact. Tympanic membranes are within normal limits. Nasal passages are patent. No sinus tenderness elicited. Oral mucosa moist. Posterior pharynx without any exudate. NECK: Supple. Carotid pulses are 2+ symmetrical. Normal upstroke and contour. No JVD appreciated. No supraclavicular adenopathy. No cervical adenopathy. No axillary adenopathy. PULMONARY: Clear to auscultation in all lung kerr. Tympanic to percussion. Negative for rhonchi. Negative for wheezing. Negative for egophony. CARDIOVASCULAR: Regular rate without S3, without S4. PMI is not displaced. No murmurs, no clicks, no rubs. No parasternal lift. ABDOMEN: Soft, nontender, normal bowel sounds. Stool guaiac is negative. Negative for any epigastric discomfort. No suprapubic discomfort. No CVA discomfort. Liver approximately 5 cm in span. Spleen tip nonpalpable. EXTREMITIES: No edema noted except for the left hip, but there is erythema and tenderness to palpation. NEUROLOGIC: DTRs are 2+ symmetrical. Cranial nerves 2-12 within normal limits. laboratory and microbiology Laboratory Tests 01/15/25 04:55 01/14/25 13:23 Test 01/15/25 04:55 Range/Units Serum Glucose 141 H 74-106 mg/dL Problem List TOTAL LEFT HIP ARTHROPLASTY [id number] COMPLICATED BY RECURRENT EFFUSION PAIN EROSION AND POSSIBLE SEPTIC JOINT MULTIPLE INTERVENTION WITHOUT RESOLUTION NOW FAILED LEFT HIP PROSTHESIS S/P TOTAL REVISION / REPLACEMENT SEPTIC LEFT HIP PROSTHETIC JOINT Assessment/Plan H/H ABX PT PT WITH LEUKOCYTOSIS CHECK CBC REVIEWED LABS: K, CL, AND CREATININE ARE NORMAL Plan discussed with: Patient KARISSA HUBBARD MD Jan 15, 2025 16:14
[2025-01-15 19:49] LABS: Urine Protein, UAD 1+ (Negative)
[2025-01-16] VITALS (9 sets, daily range): BP systolic 127–158; BP diastolic 71–85; PULSE 65–91; RESP 16–18; TEMP 97.6–98.3; O2SAT 94–97
[2025-01-16 04:57] LABS: Chloride 98 mmol/L (98-107); Potassium 4.2 mmol/L (3.5-5.1)
[2025-01-16 04:58] LABS: Anion Gap 8 (5-15); Carbon Dioxide 28 mmol/L (20-31)
[2025-01-16 04:59] LABS: Hematocrit 34.7 % (36.0-46.0); Hemoglobin 11.8 g/dL (12.2-16.2); Mean Corpuscular Hemoglobin 30.6 pg (28.0-32.0); Mean Corpuscular Volume 90.4 fL (80.0-100.0); Nucleated Red Blood Cells % 0.0 %
[2025-01-16 05:02] LABS: Calcium 8.5 mg/dL (8.7-10.4); Sodium 134 mmol/L (136-145)
[2025-01-16 05:03] LABS: BUN/Creatinine Ratio 29.2 (10.0-20.0); Blood Urea Nitrogen 19 mg/dL (9-23); Glucose 94 mg/dL (74-106)
--- NOTE | 2025-01-16 07:31 | DVHPN2 ---
Progress Note Date Seen: Jan 16, 2025 Medical Necessity Reason Pt with a Central, PICC or Fol: No Subjective Patient reports: No new complaints Objective vital signs Vital Sign Date Time Temp Pulse Resp B/P (MAP) Pulse Ox O2 Delivery O2 Flow Rate FiO2 01/16/25 05:00 98.1 66 16 140/85 (103) 95 98.1 01/15/25 20:00 Nasal Cannula* 2 28 Total Intake and Output 01/15/25 01/15/25 01/16/25 15:00 23:00 07:00 Intake Total 50 ml 2880 ml 440 ml Output Total 450 ml Balance 50 ml 2430 ml 440 ml medications Current Medications Medications Dose Ordered Sig/Kym Route Start Time Stop Time Status Last Admin Dose Admin Cyclobenzaprine HCl 10 mg Q8HP PRN PO 01/14/25 07:00 Famotidine 40 mg BID PO 01/14/25 10:00 UNV Gabapentin 300 mg DAILY PO 01/14/25 10:00 01/15/25 10:36 300 MG Patient Own Medication 1 cap BID PO 01/14/25 10:00 UNV Patient Own Medication 4 mg BID PO 01/14/25 10:00 01/15/25 10:36 4 MG Acetaminophen 650 mg Q6HP PRN PO 01/14/25 07:00 01/14/25 14:23 650 MG Oxycodone/ Acetaminophen 1 tab Q4HP PRN PO 01/14/25 07:00 Docusate Sodium 100 mg Q12HR PO 01/14/25 10:00 01/15/25 23:20 100 MG Enoxaparin Sodium 40 mg DAILY SC 01/15/25 10:00 01/15/25 10:36 40 MG Nitroglycerin 0.4 mg Q5MINP PRN SL 01/14/25 07:00 Morphine Sulfate 2 mg Q30M PRN IV 01/14/25 07:00 Famotidine 20 mg DAILY PO 01/14/25 10:00 01/15/25 10:36 20 MG Multivitamins/ Minerals 1 tab BID PO 01/14/25 10:00 01/15/25 23:20 1 TAB Cefepime HCl 50 ml @ 12.5 mls/hr DAILY IV 01/14/25 10:00 01/15/25 10:35 12.5 MLS/HR Oxycodone HCl 10 mg ONCE PRN PO 01/14/25 10:00 Diagnostic Test (Pha) 1 strip ACHS 01/14/25 11:30 01/16/25 06:25 1 STRIP Insulin Human Regular HS SC 01/14/25 22:00 01/15/25 22:00 2 UNITS Insulin Human Regular AC SC 01/14/25 11:30 01/15/25 12:08 2 UNITS Dextrose 50 ml UD PRN IV 01/14/25 11:00 Hydromorphone HCl 1 mg Q3HP PRN IV 01/15/25 12:30 Hydralazine HCl 10 mg Q6HP PRN IV 01/15/25 12:30 Examination: GENERAL:Normal, MSK:Abnormal laboratory and microbiology Laboratory Tests 01/16/25 04:32 Test 01/16/25 04:32 Range/Units Serum Glucose 94 74-106 mg/dL Problem List/Assessment/Plan Problem List/Assessment/Plan 74 year old female who is s/p Revision left DANIELA POD 2 1. Pain control 2. DVT ppx 3 physical therapy 4. continue with abduction pillow at night when sleeping 5. physical therapy 6. patient has prescriptions for percocet, aspirin and colace as prescribed prior to surgery, new order for doxycycline sent to [facility] in addition for infection prophylaxis 7. current dressing to remain in place for 2 weeks 8. patient scheduled for postop on 01/30/2025 at 9:45 9. WBC trending down as expected and patient aware there are no concerns from orthopedic standpoint 10. patient is clear for discharge from orthopedic standpoint with the following discharge recommendations: POSTOPERATIVE Posterior Total Hip INSTRUCTIONS Activity: 1. You can bear as much weight as you tolerate on your hip unless specifically instructed otherwise. You may use the walking aid which you were discharged with and switch to a cane whenever you feel comfortable doing so. You should use an assistive device until you can walk comfortably without it. Keep in mind that every patient moves at their own speed of recovery so take your time. 2. A physical therapist will visit you at home. 3. Although guarantees against a dislocation do not exist, the hip was noted to be sufficiently stable in surgery. Below are motions that you should dischargenot do for 4-6 weeks, depending on the surgical approach used. If there are questions, please call the office. a. Bend forward past 90 degrees b. Sit on a regular low chair, couch, car seat etc... c. Cross your legs d. Use a regular low toilet seat. e. Sleep on your stomach or on either side. 3. High impact activity such as jumping, aerobics, tennis, and skiing are not permitted during the first 3 months after surgery. These activities can contribute to accelerated wear and should be done with caution after this time. Discuss this with your surgeon if you have questions. 4. Although a bath or whirlpool is NOT permitted during the first 2-3 weeks, you may shower as soon as you get home from the hospital provided you are able to keep your bandage clean and dry and there is no wound drainage. If you are unable to place a secured covering over your bandage bed bath/sponge bath may likely be the more appropriate option. 5. Swimming is not permitted until the wound is healed, which typically occurs approximately 3-4 weeks after surgery. Wound Management: If the wound is draining please change the gauze pad on the wound until it stops. If drainage persists past 10 days please notify our office. If there is a sticky gel dressing over your wound, you may leave this in place for as long as it is clean and dry. If it becomes loose or causes skin irritation, it is OK to remove it and place clean gauze over your wound. 1. You might notice some bruising around the surgical site, this is normal. 2. Check your temperature on a daily basis. Please note that a low-grade temp below 101 is not uncommon after surgery especially during the first 3 days. Notify the office if your temperature spikes above 101.5 after the 3rd post- operative date. 3. Many patients experience significant swelling in the thigh, this may extend below the knee and sometimes to the ankle. Swelling increases during the first week and subsides during the following week. 4. Provided you have been on a blood thinner since surgery and have been up and about at least three times per day, the risk of a blood clot is low and this swelling is an expected part of recovery. It will largely or completely resolve by your first post-operative visit. 5. Coco, if present, will be removed at 2 weeks during initial post-op visit. Medications: 1. You will be discharged with pain medication, Aspirin as a blood thinner and sometimes an anti-inflammatory medication such as Celebrex or Mobic might be prescribed. Please follow the instructions regarding these medicines as provided by your nurse at the hospital. 2. Narcotic pain medication has side effects, including constipation. Please ensure you continue to take stool softeners (Colace, Senna) while taking your pain medication to help protect against constipation. Getting up and moving around at least a few times per day helps with this also. 3. Lovenox 40 Sq x 12 days followed by one regular strength 325 mg coated aspirin daily for 4 weeks after surgery. Then, take one baby aspirin, 81 mg daily for 6 weeks more. A major, yet preventable, complication of Orthopaedic Surgery is a blood clot (DVT). It is important not to miss any doses of this important medication. 4. You should restart all of your prescription medications once discharged unless specifically instructed otherwise. 5. Herbal supplements may be restarted 2 weeks after surgery. Miscellaneous issues: 1. Driving is not permitted within the first 2 weeks. 2. Your first postoperative visit will take place 2weeks after discharge. Please call the office to arrange this appointment. 3. Antibiotic preventative treatment is required before dental or other invasive procedures. Please ask your surgeon about this at your first postoperative visit. Your hip replacement contains metal which may activate metal detectors. You may wish to carry a letter from your surgeon to communicate this to security personnel. If you experience chest pain, shortness of breath or severe painful calf swelling, go to the nearest emergency room to be evaluated. Please call our office once your situation is stabilized. Plan discussed with: Patient My Orders My Orders Orders - CHARLY BAIG NP Procedure Category Date Status Time D/C Shantelle GRANDA 01/15/25 In Process 08:10 Date of Service: Jan 16, 2025 Billing Provider: JAIME ANDREW MD Common Visit Codes: NOT BILLABLE CHARLY BAIG NP Jan 16, 2025 07:31
--- NOTE | 2025-01-16 11:46 | DVHPN2 ---
Progress Note Date Seen: Jan 16, 2025 Medical Necessity Reason Pt with a Central, PICC or Fol: No Subjective Patient reports: No new complaints Review of Systems: HEENT:Normal, CVS:Normal, RESPIRATORY:Normal, GI:Normal, :Normal, MSK:Normal, NEURO:Normal Objective vital signs Vital Sign Date Time Temp Pulse Resp B/P (MAP) Pulse Ox O2 Delivery O2 Flow Rate FiO2 01/16/25 09:00 98.3 91 18 146/84 (104) 94 98.3 01/16/25 08:00 Nasal Cannula* 2 28 Total Intake and Output 01/15/25 01/15/25 01/16/25 15:00 23:00 07:00 Intake Total 50 ml 2880 ml 440 ml Output Total 450 ml Balance 50 ml 2430 ml 440 ml medications Current Medications Medications Dose Ordered Sig/Kym Route Start Time Stop Time Status Last Admin Dose Admin Cyclobenzaprine HCl 10 mg Q8HP PRN PO 01/14/25 07:00 Famotidine 40 mg BID PO 01/14/25 10:00 UNV Gabapentin 300 mg DAILY PO 01/14/25 10:00 01/16/25 09:25 300 MG Patient Own Medication 1 cap BID PO 01/14/25 10:00 UNV Patient Own Medication 4 mg BID PO 01/14/25 10:00 01/15/25 10:36 4 MG Acetaminophen 650 mg Q6HP PRN PO 01/14/25 07:00 01/14/25 14:23 650 MG Oxycodone/ Acetaminophen 1 tab Q4HP PRN PO 01/14/25 07:00 Docusate Sodium 100 mg Q12HR PO 01/14/25 10:00 01/16/25 09:26 100 MG Enoxaparin Sodium 40 mg DAILY SC 01/15/25 10:00 01/16/25 09:26 40 MG Nitroglycerin 0.4 mg Q5MINP PRN SL 01/14/25 07:00 Morphine Sulfate 2 mg Q30M PRN IV 01/14/25 07:00 Famotidine 20 mg DAILY PO 01/14/25 10:00 01/16/25 09:25 20 MG Multivitamins/ Minerals 1 tab BID PO 01/14/25 10:00 01/16/25 09:25 1 TAB Cefepime HCl 50 ml @ 12.5 mls/hr DAILY IV 01/14/25 10:00 01/16/25 09:26 12.5 MLS/HR Oxycodone HCl 10 mg ONCE PRN PO 01/14/25 10:00 Diagnostic Test (Pha) 1 strip ACHS 01/14/25 11:30 01/16/25 10:56 1 STRIP Insulin Human Regular HS SC 01/14/25 22:00 01/15/25 22:00 2 UNITS Insulin Human Regular AC SC 01/14/25 11:30 01/16/25 11:26 2 UNITS Dextrose 50 ml UD PRN IV 01/14/25 11:00 Hydromorphone HCl 1 mg Q3HP PRN IV 01/15/25 12:30 Hydralazine HCl 10 mg Q6HP PRN IV 01/15/25 12:30 Examination: GENERAL:Normal, HEENT:Normal, NECK:Normal, LUNGS:Normal, CVS:Normal, ABDOMEN:Normal, MSK:Normal, MSK:Abnormal (left hip dressing), SKIN:Normal, NEURO:Normal, :Normal laboratory and microbiology Laboratory Tests 01/16/25 04:32 Test 01/16/25 04:32 Range/Units Serum Glucose 94 74-106 mg/dL Problem List/Assessment/Plan Problem List/Assessment/Plan * Diabetes mellitus, for which she will be placed on sliding scale insulin. * Hypertension for which she will be placed on p.r.n. hydralazine. * Hyperlipidemia. * Obesity. * Status post left hip surgery for which she will be placed on pain medication and receive physical therapy. ADVANCED CARE PLANNING: The patient is a full code- Time spent was 18 minutes. Plan discussed with: Patient My Orders My Orders Orders - MARK CROOK MD Procedure Category Date Status Time Hydromorphone PHA 01/15/25 In Process Injection (Dilaudid 12:30 Hydralazine Injection PHA 01/15/25 In Process (Apresoline Inject 12:30 Date of Service: Jan 16, 2025 Billing Provider: MARK CROOK MD Common Visit Codes: [id number] INP/OBS CARE(HIGH) Secondary Visit Codes: [id number] CARE PLAN 30 MINUTES MARK CROOK MD Jan 16, 2025 11:46
--- NOTE | 2025-01-16 15:46 | DVHPN2 ---
Progress Note - Dictate Date Seen: Jan 16, 2025 Medical Necessity Reason Pt with a Central, PICC or Fol: No Subjective PT WITH TOTAL LEFT HIP ARTHROPLASTY [id number] COMPLICATED BY RECURRENT EFFUSION PAIN EROSION AND POSSIBLE SEPTIC JOINT MULTIPLE INTERVENTION WITHOUT RESOLUTION NOW FAILED LEFT HIP PROSTHESIS S/P TOTAL REVISION / REPLACEMENT SEPTIC LEFT HIP PROSTHETIC JOINT vital signs Vital Sign Date Time Temp Pulse Resp B/P (MAP) Pulse Ox O2 Delivery O2 Flow Rate FiO2 01/16/25 13:05 80 18 127/75 (92) 97 01/16/25 13:00 98.1 98.1 01/16/25 08:00 Nasal Cannula* 2 28 Total Intake and Output 01/15/25 01/15/25 01/16/25 15:00 23:00 07:00 Intake Total 50 ml 2880 ml 440 ml Output Total 450 ml Balance 50 ml 2430 ml 440 ml medications Current Medications Medications Dose Ordered Sig/Kym Route Start Time Stop Time Status Last Admin Dose Admin Cyclobenzaprine HCl 10 mg Q8HP PRN PO 01/14/25 07:00 Famotidine 40 mg BID PO 01/14/25 10:00 UNV Gabapentin 300 mg DAILY PO 01/14/25 10:00 01/16/25 09:25 300 MG Patient Own Medication 1 cap BID PO 01/14/25 10:00 UNV Patient Own Medication 4 mg BID PO 01/14/25 10:00 01/15/25 10:36 4 MG Acetaminophen 650 mg Q6HP PRN PO 01/14/25 07:00 01/16/25 12:05 650 MG Oxycodone/ Acetaminophen 1 tab Q4HP PRN PO 01/14/25 07:00 Docusate Sodium 100 mg Q12HR PO 01/14/25 10:00 01/16/25 09:26 100 MG Enoxaparin Sodium 40 mg DAILY SC 01/15/25 10:00 01/16/25 09:26 40 MG Nitroglycerin 0.4 mg Q5MINP PRN SL 01/14/25 07:00 Morphine Sulfate 2 mg Q30M PRN IV 01/14/25 07:00 Famotidine 20 mg DAILY PO 01/14/25 10:00 01/16/25 09:25 20 MG Multivitamins/ Minerals 1 tab BID PO 01/14/25 10:00 01/16/25 09:25 1 TAB Cefepime HCl 50 ml @ 12.5 mls/hr DAILY IV 01/14/25 10:00 01/16/25 09:26 12.5 MLS/HR Oxycodone HCl 10 mg ONCE PRN PO 01/14/25 10:00 Diagnostic Test (Pha) 1 strip ACHS 01/14/25 11:30 01/16/25 10:56 1 STRIP Insulin Human Regular HS SC 01/14/25 22:00 01/15/25 22:00 2 UNITS Insulin Human Regular AC SC 01/14/25 11:30 01/16/25 11:26 2 UNITS Dextrose 50 ml UD PRN IV 01/14/25 11:00 Hydromorphone HCl 1 mg Q3HP PRN IV 01/15/25 12:30 Hydralazine HCl 10 mg Q6HP PRN IV 01/15/25 12:30 objective oft tissue swelling, surrounding the hip, could reflect secondary evidence for an underlying infective process such as septic arthritis. The left hip prosthesis is not fractured. The bone adjacent to the prosthesis is not fractured. Prosthetic Loosening, or particle disease, are better evaluated on MRI. TRIPLE PHASE BONE SCAN WAS NEGATIVE VITAL SIGNS: Blood pressure is 134/80, pulse of 70, O2 saturation 98% on room air. HEENT: Pupils are reactive. Funduscopic exam is benign. Sclerae anicteric. No AV nicking. No papilledema noted. Extraocular muscles are intact. Tympanic membranes are within normal limits. Nasal passages are patent. No sinus tenderness elicited. Oral mucosa moist. Posterior pharynx without any exudate. NECK: Supple. Carotid pulses are 2+ symmetrical. Normal upstroke and contour. No JVD appreciated. No supraclavicular adenopathy. No cervical adenopathy. No axillary adenopathy. PULMONARY: Clear to auscultation in all lung kerr. Tympanic to percussion. Negative for rhonchi. Negative for wheezing. Negative for egophony. CARDIOVASCULAR: Regular rate without S3, without S4. PMI is not displaced. No murmurs, no clicks, no rubs. No parasternal lift. ABDOMEN: Soft, nontender, normal bowel sounds. Stool guaiac is negative. Negative for any epigastric discomfort. No suprapubic discomfort. No CVA discomfort. Liver approximately 5 cm in span. Spleen tip nonpalpable. EXTREMITIES: No edema noted except for the left hip, but there is erythema and tenderness to palpation. NEUROLOGIC: DTRs are 2+ symmetrical. Cranial nerves 2-12 within normal limits. laboratory and microbiology Laboratory Tests 01/16/25 04:32 Test 01/16/25 04:32 Range/Units Serum Glucose 94 74-106 mg/dL Problem List TOTAL LEFT HIP ARTHROPLASTY [id number] COMPLICATED BY RECURRENT EFFUSION PAIN EROSION AND POSSIBLE SEPTIC JOINT MULTIPLE INTERVENTION WITHOUT RESOLUTION NOW FAILED LEFT HIP PROSTHESIS S/P TOTAL REVISION / REPLACEMENT SEPTIC LEFT HIP PROSTHETIC JOINT Assessment/Plan H/H ABX PT PT WITH LEUKOCYTOSIS CHECK CBC WBC TRENDING DOWN DC IN AM REVIEWED LABS: [facility]CV, [facility] AND [facility] ARE NORMAL Plan discussed with: Patient KARISSA HUBBARD MD Jan 16, 2025 15:46
[2025-01-17 05:00] VITALS: BP 148/85; PULSE 77; RESP 18; TEMP 98; O2SAT 94
[2025-01-17 08:00] VITALS: PULSE 68; RESP 18; O2SAT 97
--- NOTE | 2025-01-17 08:12 | DVHPN2 ---
Progress Note - Dictate Date Seen: Jan 17, 2025 Medical Necessity Reason Pt with a Central, PICC or Fol: No Subjective PT WITH TOTAL LEFT HIP ARTHROPLASTY [id number] COMPLICATED BY RECURRENT EFFUSION PAIN EROSION AND POSSIBLE SEPTIC JOINT MULTIPLE INTERVENTION WITHOUT RESOLUTION NOW FAILED LEFT HIP PROSTHESIS S/P TOTAL REVISION / REPLACEMENT SEPTIC LEFT HIP PROSTHETIC JOINT vital signs Vital Sign Date Time Temp Pulse Resp B/P (MAP) Pulse Ox O2 Delivery O2 Flow Rate FiO2 01/17/25 05:00 98.0 77 18 148/85 (106) 94 98.0 01/16/25 20:00 Nasal Cannula* 2 28 Total Intake and Output 01/16/25 01/16/25 01/17/25 15:00 23:00 07:00 Intake Total 560 ml 620 ml Balance 560 ml 620 ml medications Current Medications Medications Dose Ordered Sig/Kym Route Start Time Stop Time Status Last Admin Dose Admin Cyclobenzaprine HCl 10 mg Q8HP PRN PO 01/14/25 07:00 Famotidine 40 mg BID PO 01/14/25 10:00 UNV Gabapentin 300 mg DAILY PO 01/14/25 10:00 01/16/25 09:25 300 MG Patient Own Medication 1 cap BID PO 01/14/25 10:00 UNV Patient Own Medication 4 mg BID PO 01/14/25 10:00 01/15/25 10:36 4 MG Acetaminophen 650 mg Q6HP PRN PO 01/14/25 07:00 01/16/25 12:05 650 MG Oxycodone/ Acetaminophen 1 tab Q4HP PRN PO 01/14/25 07:00 Docusate Sodium 100 mg Q12HR PO 01/14/25 10:00 01/16/25 21:21 100 MG Enoxaparin Sodium 40 mg DAILY SC 01/15/25 10:00 01/16/25 09:26 40 MG Nitroglycerin 0.4 mg Q5MINP PRN SL 01/14/25 07:00 Morphine Sulfate 2 mg Q30M PRN IV 01/14/25 07:00 Famotidine 20 mg DAILY PO 01/14/25 10:00 01/16/25 09:25 20 MG Multivitamins/ Minerals 1 tab BID PO 01/14/25 10:00 01/16/25 22:58 1 TAB Cefepime HCl 50 ml @ 12.5 mls/hr DAILY IV 01/14/25 10:00 01/16/25 09:26 12.5 MLS/HR Oxycodone HCl 10 mg ONCE PRN PO 01/14/25 10:00 Diagnostic Test (Pha) 1 strip ACHS 01/14/25 11:30 01/17/25 05:05 1 STRIP Insulin Human Regular HS SC 01/14/25 22:00 01/16/25 21:20 2 UNITS Insulin Human Regular AC SC 01/14/25 11:30 01/17/25 05:06 2 UNITS Dextrose 50 ml UD PRN IV 01/14/25 11:00 Hydromorphone HCl 1 mg Q3HP PRN IV 01/15/25 12:30 Hydralazine HCl 10 mg Q6HP PRN IV 01/15/25 12:30 objective oft tissue swelling, surrounding the hip, could reflect secondary evidence for an underlying infective process such as septic arthritis. The left hip prosthesis is not fractured. The bone adjacent to the prosthesis is not fractured. Prosthetic Loosening, or particle disease, are better evaluated on MRI. TRIPLE PHASE BONE SCAN WAS NEGATIVE VITAL SIGNS: Blood pressure is 134/80, pulse of 70, O2 saturation 98% on room air. HEENT: Pupils are reactive. Funduscopic exam is benign. Sclerae anicteric. No AV nicking. No papilledema noted. Extraocular muscles are intact. Tympanic membranes are within normal limits. Nasal passages are patent. No sinus tenderness elicited. Oral mucosa moist. Posterior pharynx without any exudate. NECK: Supple. Carotid pulses are 2+ symmetrical. Normal upstroke and contour. No JVD appreciated. No supraclavicular adenopathy. No cervical adenopathy. No axillary adenopathy. PULMONARY: Clear to auscultation in all lung kerr. Tympanic to percussion. Negative for rhonchi. Negative for wheezing. Negative for egophony. CARDIOVASCULAR: Regular rate without S3, without S4. PMI is not displaced. No murmurs, no clicks, no rubs. No parasternal lift. ABDOMEN: Soft, nontender, normal bowel sounds. Stool guaiac is negative. Negative for any epigastric discomfort. No suprapubic discomfort. No CVA discomfort. Liver approximately 5 cm in span. Spleen tip nonpalpable. EXTREMITIES: No edema noted except for the left hip, but there is erythema and tenderness to palpation. NEUROLOGIC: DTRs are 2+ symmetrical. Cranial nerves 2-12 within normal limits. laboratory and microbiology Laboratory Tests 01/16/25 04:32 Test 01/16/25 04:32 Range/Units Serum Glucose 94 74-106 mg/dL Problem List TOTAL LEFT HIP ARTHROPLASTY [id number] COMPLICATED BY RECURRENT EFFUSION PAIN EROSION AND POSSIBLE SEPTIC JOINT MULTIPLE INTERVENTION WITHOUT RESOLUTION NOW FAILED LEFT HIP PROSTHESIS S/P TOTAL REVISION / REPLACEMENT SEPTIC LEFT HIP PROSTHETIC JOINT Assessment/Plan H/H ABX PT PT WITH LEUKOCYTOSIS CHECK CBC WBC TRENDING DOWN DC HOME Plan discussed with: Patient KARISSA HUBBARD MD Jan 17, 2025 08:12
[2025-01-17 09:00] VITALS: BP 140/76; PULSE 69; RESP 18; TEMP 97.6; O2SAT 94
[2025-01-17 13:00] VITALS: BP 137/89; PULSE 87; RESP 16; TEMP 98; O2SAT 95
--- NOTE | 2025-01-17 14:29 | DVHDS2 ---
Discharge Summary Date of Admission Jan 14, 2025 at 06:53 Date of Discharge: Jan 17, 2025 Labs/Diagnostic Data: Laboratory Results Test 01/17/25 11:39 01/16/25 04:32 01/15/25 16:00 01/15/25 04:55 POC Glucose 107 mg/dl (70-106) White Blood Count 11.2 10^3/uL (4.4-10.8) Red Blood Count 3.84 10^6/uL (4.0-5.20) Hemoglobin 11.8 g/dL (12.2-16.2) Hematocrit 34.7 % (36.0-46.0) Mean Corpuscular Volume 90.4 fL (80.0-100.0) Mean Corpuscular Hemoglobin 30.6 pg (28.0-32.0) Mean Corpuscular Hemoglobin Concent 33.9 g/dL (32.0-36.0) Red Cell Distribution Width 14.0 % (11.8-14.3) Platelet Count 204 10^3/uL (140-450) Mean Platelet Volume 9.2 fL (6.9-10.8) Neutrophils (%) (Auto) 68.4 % (37.0-80.0) Lymphocytes (%) (Auto) 17.5 % (10.0-50.0) Monocytes (%) (Auto) 13.1 % (0.0-12.0) Eosinophils (%) (Auto) 0.7 % (0.0-7.0) Basophils (%) (Auto) 0.3 % (0.0-2.0) Neutrophils # (Auto) 7.7 10 ^3/uL (1.6-8.6) Lymphocytes # (Auto) 2.0 10 ^3/uL (0.4-5.4) Monocytes # (Auto) 1.5 10 ^3/uL (0-1.3) Eosinophils # (Auto) 0.1 10 ^3/uL (0-0.8) Basophils # (Auto) 0 10 ^3/uL (0-0.2) Nucleated Red Blood Cells 0.0 % Sodium Level 134 mmol/L (136-145) Potassium Level 4.2 mmol/L (3.5-5.1) Chloride Level 98 mmol/L (98-107) Carbon Dioxide Level 28 mmol/L (20-31) Anion Gap 8 (5-15) Blood Urea Nitrogen 19 mg/dL (9-23) Creatinine 0.65 mg/dL (0.550-1.02) Glomerular Filtration Rate Calc 91 mL/min (>90) BUN/Creatinine Ratio 29.2 (10.0-20.0) Serum Glucose 94 mg/dL (74-106) Hemoglobin A1c 6.2 % A1C (<5.7) Calcium Level 8.5 mg/dL (8.7-10.4) Urine Color Yellow (Yellow) Urine Clarity Turbid (Clear) Urine pH 5.5 (5.0-9.0) Urine Specific Sumpter 1.027 (1.001-1.035) Urine Protein 1+ (Negative) Urine Ketones Trace (Negative) Urine Blood 3+ /uL (Negative) Urine Nitrite Negative (Negative) Urine Bilirubin Negative (Negative) Urine Urobilinogen Normal mg/dL (Negative) Urine Leukocyte Esterase 1+ /uL (Negative) Urine RBC 255 /hpf (0 - 4) Urine Microscopic WBC 6 /HPF (0-5) Urine Squamous Epithelial Cells Many /hpf (<5) Urine Bacteria Few /hpf (None Seen) Urine Mucus Few (None Seen) Urine Glucose Normal mg/dL (Normal) Total Bilirubin 0.3 mg/dL (0.2-1.0) Aspartate Amino Transferase (AST) 19 U/L (13-40) Alanine Aminotransferase (ALT) 21 U/L (7-40) Alkaline Phosphatase 75 U/L (46-116) Total Protein 5.8 g/dL (5.7-8.2) Albumin 3.7 g/dL (3.2-4.8) Test 01/14/25 13:23 Prothrombin Time 10.8 sec (9.3-11.8) Prothrombin Time INR 1.02 (0.9-1.15) Activated Partial Thromboplast Time 29.3 SEC (24.5-34.5) Other Laboratory Tests 01/16/25 04:32 Brief Hx & Hospital Course: see dictated note Condition at Discharge: Fair Final Diagnosis/Problems List hip surgery Discharge Disposition: Home Discharge Instruct/Medications Diet: Cardiac 2g Na,low cholest Activity: No Restrictions, As Tolerated Follow Up/Referral: fu with pcp/ortho Medications: resume home meds rest meds per ortho Scheduled Aspirin (Aspirin Low Dose), 81 MG PO DAILY, (Reported) Diclofenac Sodium (Diclofenac Sodium Dr), MG PO DAILY, (Reported) Famotidine (Pepcid Tablet), 40 MG PO BID, (Reported) Gabapentin (Gabapentin), 300 MG PO DAILY, (Reported) Multiple Vitamins W/ Minerals ([employer]), 1 CAP PO BID, (Reported) Tolterodine Tartrate (Detrol La), 4 MG PO BID, (Reported) Scheduled PRN Carisoprodol (Soma), 350 MG PO BIDPRN PRN for FOR MUSCLE SPASM, (Reported) Cyclobenzaprine Hcl (Cyclobenzaprine Hcl), 10 MG PO Q8HP PRN for FOR MUSCLE SPASM, (Reported) Miscellaneous Medications Cyanocobalamin (B12), 1,000 MCG PO, (Reported) Diclofenac W/ Misoprostol (Arthrotec 75), 1 OR, (Reported) Magnesium Oxide (Magnesium Oxide), 400 MG PO, (Reported) Meclizine Hcl (Meclizine Hcl), 25 MG PO, (Reported) Metformin Hydrochloride (Metformin Hcl), 500 MG PO, (Reported) Ondansetron Odt 4MG Tab (Zofran Po), 4 MG PO, (Reported) Discharge Statement: "Patient was advised to return to the ER or call 911 if any headaches, dizziness, shortness of breath, chest pain, abdominal pain, bleeding, fevers, or worsening of medical condition. Patient was counseled about treatment plan, medications, possible side effects, patientverbalized understanding. All questions were answered to the best of my ability. This discharge took greater then 30 minutes in planning, reviewing documentation, counseling the patient, and discussing with other team members." ASSESSMENT ASSESSMENT Assessment hip surgery Date of Service: Jan 17, 2025 Billing Provider: MARK CROOK MD Common Visit Codes: 58637-KLL/OBS DISCH DAY >30min MARK CROOK MD Jan 17, 2025 14:29
--- NOTE | 2025-01-17 14:49 | DVHDS ---
DATE OF DISCHARGE: 01/17/2025 HISTORY OF PRESENT ILLNESS: The patient is a 74-year-old lady who was admitted after she underwent surgery on the left hip for previous failed left hip surgery. She has a history of diabetes, hypertension, and hyperlipidemia. HOSPITAL COURSE: The patient did well postoperatively. She has been ambulating with physical therapy. The patient has been cleared for discharge by Surgery. She will be discharged home to resume her home medications as well as have home health. She will follow up with her primary and Orthopedics. FINAL DIAGNOSES: Therefore, * Diabetes mellitus. * Hypertension. * Hyperlipidemia. * Obesity. 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 Time spent in discharge planning and review of plan with the patient, nursing and netsuite consultant was 38 minutes. MD ANA Lindsey/GREG TID: [id number] RECEIPT: [id number]
[2025-01-17 16:38] VITALS: BP 144/79; PULSE 77; RESP 16; TEMP 97.9; O2SAT 95
== END 2025-01-17 18:18 | disposition home health service (06) | DRG 468 ==
LOC: SUR 06:12 → OVERFLOW 06:53 → WEST WING 14:52
PROVIDERS: ADMIT Internal Medicine; ATTEND Internal Medicine
PROC: 0SRB06A Replacement of Left Hip Joint with Oxidized Zirconium on Polyethylene Synthetic Substitute, Uncemented, Open Approach (ICD-10-PCS; 2025-01-14)
PROC: 0SNB0ZZ Release Left Hip Joint, Open Approach (ICD-10-PCS; 2025-01-14)
PROC: 0SPB0JZ Removal of Synthetic Substitute from Left Hip Joint, Open Approach (ICD-10-PCS; principal; 2025-01-14 07:32)
DX: T84.091A Other mechanical complication of internal left hip prosthesis, initial encounter (principal); E11.9 Type 2 diabetes mellitus without complications; E66.9 Obesity, unspecified; I10 Essential (primary) hypertension; E78.5 Hyperlipidemia, unspecified; Z96.642 Presence of left artificial hip joint; Z82.49 Family history of ischemic heart disease and other diseases of the circulatory system; Z82.3 Family history of stroke; Z82.0 Family history of epilepsy and other diseases of the nervous system; Z79.84 Long term (current) use of oral hypoglycemic drugs; Z79.899 Other long term (current) drug therapy; Z68.30 Body mass index [BMI] 30.0-30.9, adult; Y84.8 Other medical procedures as the cause of abnormal reaction of the patient, or of later complication, without mention of misadventure at the time of the procedure; Y92.89 Other specified places as the place of occurrence of the external cause
CPT/HCPCS: 36415; 72170; 80048; 80053; 81001; 82962; 83036; 85014; 85018; 85025; 85610; 85730; 86850; 86900; 86901; 97110; 97116; 97163; 97530; A4565; G0378; J0131; J0169; J1100; J1815; J1885; J2405; J2704; J3490